=== PATIENT | female | born 1950 | race Caucasian/White ===

== ENCOUNTER → 2017-07-18 | Outpatient (CLI) | payer MEDICARE, OTHER ==
--- NOTE | 2017-07-18 10:45 | WOMENS IMAGING REPORT ---
EXAM DESCRIPTION: 3D SCREENING MAMMO BILAT COMPLETED DATE/TIME: 07/18/2017 8:17 am REASON FOR STUDY: SCREENING MAMMO Z12.31 ENCNTR SCREEN MAMMOGRAM FOR MALIGNANT NEOPLASM OF CHRIS COMPARISON: None available. TECHNIQUE: Standard craniocaudal and mediolateral oblique views of each breast recorded using digita l acquisition and breast tomosynthesis. LIMITATIONS: None. FINDINGS: RIGHT BREAST MASSES: No suspicious masses. CALCIFICATIONS: No new or suspicious calcifications. ARCHITECTURAL DISTORTION: None. DEVELOPING DENSITY: None. ASYMMETRY: None noted. OTHER: No other significant findings. LEFT BREAST MASSES: No suspicious masses. CALCIFICATIONS: No new or suspicious calcifications. ARCHITECTURAL DISTORTION: Focal architectural distortion lower inner quadrant left breast about 8 cm deep to the nipple. DEVELOPING DENSITY: None. ASYMMETRY: None noted. OTHER: No other significant findings. Read with the assistance of CAD. .[facility] - R2 Cenova Version 1.3 .[facility] - R2 Cenova Version 1.3 .[facility] - R2 Cenova Version 2.4 .[facility] [place] R2 Cenova Version 2.4 .[facility] - R2 Filter Press Tender Head Version 9.2 IMPRESSION: Architectural distortion left breast. BREAST DENSITY: b. There are scattered areas of fibroglandular density. BIRAD: 0 Incomplete: Needs Additional Imaging Evaluation and/or prior Mammograms for Comparison. RECOMMENDATION: RECOMMENDED FOLLOW-UP: True lateral, cone compression views and potential ultrasound of the left breast. The patient will be contacted for additional imaging. COMMENT: The patient has been notified of the results by letter per SA requirements. Additional no tification policies are in place for contacting patient with suspicious or incomplete findings. Quality ID #[id number]: The [employer] recommends an annual screening mammogram for women aged 40 years or over. This facility utilizes a reminder system to ensure that all patients receive reminder letters, and/or direct phone calls for appointments. This includes reminders for routine scr eening mammograms, diagnostic mammograms, or other Breast Imaging Interventions when appropriate. Th is patient will be placed in the appropriate reminder system. The [employer] (ACR) has developed recommendations for screening MRI of the breast s in certain patient populations, to be used in conjunction with mammography. Breast MRI surveillanc e may be appropriate for women with more than 20% lifetime risk of developing breast cancer as deter mined by genetic testing, significant family history of the disease, or history of mantle radiation f or Hodgkins Disease. ACR Practice Guidelines 2008. DBT Technology DBT is a type of tomographic mammography. With conventional mammography, overlapping breast tissue ma y make lesions difficult to detect, even with good compression. DBT uses an x-ray tube that rotates a round the breast, taking images at different angles. These images are then combined to create thin sl ices of the breast that the radiologist can view as a 3D reconstruction. The [employer] unit can perform full-field digital mammograms (2D imaging); or DBT (3D imaging); or both, in a combination mode that quickly performs both the mammogram and the tomosynthesis scan while the breast is still compressed. PQRS 6045F: Fluoroscopic imaging is not utilized for breast tomosynthesis. TECHNICAL DOCUMENTATION: FINDING NUMBER: (1) ASSESSMENT: (1) JOB ID: [id number] [employer]- All Rights Reserved Reading location - IP/workstation name: [email or web address]
== END ==
LOC: WI 08:03
PROVIDERS: ATTEND Nurse Practitioner Primary Care
DX: Z12.31 Encounter for screening mammogram for malignant neoplasm of breast (principal); N64.89 Other specified disorders of breast
CPT/HCPCS: 77063; 77067

== ENCOUNTER → 2017-07-30 | Outpatient (CLI) | payer MEDICARE, OTHER ==
--- NOTE | 2017-07-30 10:03 | WOMENS IMAGING REPORT ---
EXAM DESCRIPTION: LEFT DIAGNOSTIC MAMMO W/CAD; U/S BREAST UNILAT LIMITED COMPLETED DATE/TIME: 07/30/2017 8:05 am; 07/30/2017 8:41 am REASON FOR STUDY: NODULAR DENSITY; LT BREAST N63.24 N63.24 UNSPECIFIED LUMP IN THE LEFT BREAST, LOW ER INNER QUAD COMPARISON: 07/18/2017 TECHNIQUE: True lateral and cone compression views. LIMITATIONS: None. FINDINGS: BREAST: left MASSES: Small mass with architectural distortion upper inner quadrant persists with cone compression. CALCIFICATIONS: No new or suspicious calcifications. ARCHITECTURAL DISTORTION: See above. DEVELOPING DENSITY: None. ASYMMETRY: None noted. OTHER: No other significant findings. Ultrasound of the left breast demonstrates, in the upper outer quadrant, 7 x 5 x 7 mm hypoechoic lesi on with posterior shadowing and internal flow on color Doppler. IMPRESSION: Suspicious mass. BREAST DENSITY: b. There are scattered areas of fibroglandular density. BIRAD: 4 Suspicious. Biopsy should be considered. RECOMMENDATION: RECOMMENDED FOLLOW UP: Birads 4: Biopsy should be performed in the absence of clinic al contraindication. SPECIFIC INTERVENTION/IMAGING/CONSULTATION RECOMMENDED:The suspicious finding(s) amenable to US guide d core/vacuum assisted biopsy. COMMUNICATION:The imaging findings were not discussed with the patient. Her referring provider has be en notified of the findings. COMMENT: The patient has been notified of the results by letter per SA requirements. Additional no tification policies are in place for contacting patient with suspicious or incomplete findings. Quality ID #[id number]: The [employer] recommends an annual screening mammogram for women aged 40 years or over. This facility utilizes a reminder system to ensure that all patients receive reminder letters, and/or direct phone calls for appointments. This includes reminders for routine scr eening mammograms, diagnostic mammograms, or other Breast Imaging Interventions when appropriate. Th is patient will be placed in the appropriate reminder system. The [employer] (ACR) has developed recommendations for screening MRI of the breast s in certain patient populations, to be used in conjunction with mammography. Breast MRI surveillanc e may be appropriate for women with more than 20% lifetime risk of developing breast cancer as deter mined by genetic testing, significant family history of the disease, or history of mantle radiation f or Hodgkins Disease. ACR Practice Guidelines 2008. TECHNICAL DOCUMENTATION: FINDING NUMBER: (1) ASSESSMENT: (1) JOB ID: [id number] [employer]- All Rights Reserved Reading location - IP/workstation name: [email or web address]
== END ==
LOC: WI 07:35
PROVIDERS: ATTEND Nurse Practitioner Primary Care
DX: N63.24 Unspecified lump in the left breast, lower inner quadrant (principal)
CPT/HCPCS: 76642

== ENCOUNTER → 2017-09-02 | Outpatient (CLI) | payer MEDICARE, OTHER ==
--- NOTE | 2017-09-03 08:19 | WOMENS IMAGING REPORT ---
EXAM DESCRIPTION: 3D DX MAMMO LEFT UNILAT COMPLETED DATE/TIME: 09/02/2017 10:33 am REASON FOR STUDY: ABNORMAL AND INCONCLUSIVE FINDINGS; R92.8 R92.8 OTH ABN AND INCONCLUSIVE FINDINGS ON DX IMAGING OF CHRIS COMPARISON: 07/18/2017, 07/30/2017 mammograms Left breast ultrasound 07/30/2017 TECHNIQUE: Standard craniocaudal and mediolateral oblique images of the breast recorded using digita l acquisition and breast tomosynthesis. LIMITATIONS: None. FINDINGS: BREAST: Left MASSES: The suspicious 7 x 5 mm nodule in the left breast medially 9 to 10 o'clock position upper inn er quadrant was biopsied by Dr. Gonzalez. There is now a biopsy clip in the mass. CALCIFICATIONS: No new or suspicious calcifications. ARCHITECTURAL DISTORTION: There is architectural distortion associated with the 7 x 5 mm previously b iopsied nodule in the medial left breast DEVELOPING DENSITY: None. ASYMMETRY: None noted. OTHER: No other significant findings. Read with the assistance of CAD. .[facility] - R2 Cenova Version 1.3 .[facility] - R2 Cenova Version 1.3 .[facility] - R2 Cenova Version 2.4 .[facility] [place]2 Cenova Version 2.4 .[facility] - R2 Vendor Management Associate Version 9.2 IMPRESSION: Biopsy Clip marker is now present in the left breast suspicious nodules 7 x 5 mm in size , medially at the 9 to 10 o'clock position. BREAST DENSITY: b. There are scattered areas of fibroglandular density. BIRAD: 6 Known biopsy-proven malignancy. Appropriate action should be taken. RECOMMENDATION: RECOMMENDED FOLLOW UP: As per Dr. Gonzalez SPECIFIC INTERVENTION/IMAGING/CONSULTATION RECOMMENDED:No additional intervention/ imaging/consultati on needed at this time. COMMUNICATION:Patient notified by letter COMMENT: The patient has been notified of the results by letter per SA requirements. Additional no tification policies are in place for contacting patient with suspicious or incomplete findings. Quality ID #[id number]: The [employer] recommends an annual screening mammogram for women aged 40 years or over. This facility utilizes a reminder system to ensure that all patients receive reminder letters, and/or direct phone calls for appointments. This includes reminders for routine scr eening mammograms, diagnostic mammograms, or other Breast Imaging Interventions when appropriate. Th is patient will be placed in the appropriate reminder system. The [employer] (ACR) has developed recommendations for screening MRI of the breast s in certain patient populations, to be used in conjunction with mammography. Breast MRI surveillanc e may be appropriate for women with more than 20% lifetime risk of developing breast cancer as deter mined by genetic testing, significant family history of the disease, or history of mantle radiation f or Hodgkins Disease. ACR Practice Guidelines 2008. DBT Technology DBT is a type of tomographic mammography. With conventional mammography, overlapping breast tissue ma y make lesions difficult to detect, even with good compression. DBT uses an x-ray tube that rotates a round the breast, taking images at different angles. These images are then combined to create thin sl ices of the breast that the radiologist can view as a 3D reconstruction. The [place] unit can perform full-field digital mammograms (2D imaging); or DBT (3D imaging); or both, in a combination mode that quickly performs both the mammogram and the tomosynthesis scan while the breast is still compressed. PQRS 6045F: Fluoroscopic imaging is not utilized for breast tomosynthesis. TECHNICAL DOCUMENTATION: FINDING NUMBER: (1) ASSESSMENT: (1) JOB ID: [id number] [employer]- All Rights Reserved Reading location - IP/workstation name: [email or web address]
== END ==
LOC: WI 10:13
PROVIDERS: ATTEND Surgery
DX: N63.22 Unspecified lump in the left breast, upper inner quadrant (principal)
CPT/HCPCS: 77065; G0279

== ENCOUNTER 2017-09-27 06:51 | Inpatient (IN) | payer MEDICARE, OTHER ==
[2017-09-27] MEDS ORDERED: HEPARIN SOD (PORCINE) 1,000 UNIT/ML 10 ML VIAL IV ONE ×2 (07:32→08:05)
[2017-09-27] MEDS ORDERED: DILTIAZEM HCL/D5W 125 MG/125 ML RTUINJ IV PRN (07:36)
[2017-09-27] MEDS ORDERED: HEPARIN SODIUM,PORCINE/D5W 25,000 UNIT/250 ML RTUINJ IV PRN (07:38)
[2017-09-27] MEDS ORDERED: DILTIAZEM HCL INJ 25 MG/5 ML VIAL IV ONE (07:40)
--- NOTE | 2017-09-27 07:43 | ER Document Report ---
ED General - General Chief Complaint: Palpitations Stated Complaint: PALPITATIONS Time Seen by Provider: 09/27/17 07:00 Mode of Arrival: Ambulatory Information source: Patient, Relative TRAVEL OUTSIDE OF THE [place] IN LAST 30 DAYS: No - HPI Notes: 67 yr old female present to the ED with new onset A. fib with slight shortness of breath, states symptoms started approximately 2 hours ago where she feels like her "heart is skipping a beat". She does not take any anticoagulants. Denies history of hypertension. States she has had episodes where she felt like her heart was skipping a beat but it only lasted for 20 seconds and went away. Reports she is fully immunized. Denies any trauma to her chest. Patient did have a left-sided lumpectomy performed 2 weeks ago for stage I breast cancer without metastasis. She is still waiting to undergo radiation therapy patient does have a history of a nephrectomy. states this is a long as she is ever felt her heart racing. Does not take any everyday medications. States she drinks coffee moderately and eats chocolate. Denies fevers, chills, chest pain, dyspnea, nausea, vomiting, diarrhea, abdominal pain, hematuria, blurred vision, double vision, loss of vision, speech changes, LH, dizziness, syncope, headaches, wheezing, ST, URI, neck pain, weakness, bowel or bladder dysfunction, saddle anesthesia, numbness or tingling in bilateral upper or lower extremities equally, muscle paralysis, weakness in bilateral upper or lower extremities equally or rash. Denies IV drug use. - Related Data Allergies/Adverse Reactions: Sulfa (Sulfonamide Antibiotics) Allergy (Verified 09/27/17 07:44) Past Medical History - General Information source: Patient, Relative - Social History Smoking Status: Unknown if Ever Smoked Family History: Reviewed & Not Pertinent Review of Systems - Review of Systems Constitutional: See HPI EENT: No symptoms reported Cardiovascular: Palpitations Respiratory: Short of breath Gastrointestinal: No symptoms reported Genitourinary: No symptoms reported Female Genitourinary: No symptoms reported Musculoskeletal: No symptoms reported Skin: No symptoms reported Hematologic/Lymphatic: No symptoms reported Neurological/Psychological: No symptoms reported Physical Exam - Vital signs Vitals: Temp Pulse Resp BP Pulse Ox 97.5 F 131 H 18 126/100 H 94 09/27/17 07:03 09/27/17 07:03 09/27/17 07:03 09/27/17 07:03 09/27/17 07:03 - Notes Notes: PHYSICAL EXAMINATION: GENERAL: Well-appearing, well-nourished and in no acute distress. HEAD: Atraumatic, normocephalic. EYES: Pupils equal round and reactive to light, extraocular movements intact, conjunctiva are normal. ENT: Nares patent, oropharynx clear without exudates. Moist mucous membranes. NECK: Normal range of motion, supple without lymphadenopathy LUNGS: Breath sounds clear to auscultation bilaterally and equal. No wheezes rales or rhonchi. HEART: Tachycardia, irregular, A. fib. No murmurs noted ABDOMEN: Soft, nontender, nondistended abdomen. No guarding, no rebound. No masses appreciated. Female : deferred Musculoskeletal: Normal range of motion, no pitting or edema. No cyanosis. NEUROLOGICAL: Cranial nerves grossly intact. Normal speech, normal gait. Normal sensory, motor exams PSYCH: Normal mood, normal affect. SKIN: Warm, Dry, normal turgor, no rashes or lesions noted. PHYSICAL EXAMINATION: Course - Re-evaluation Re-evalutation: 09/27/17 08:58 67-year-old female is afebrile, in active rapid A. fib no distress presents for evaluation of palpitations and shortness of breath. Patient is in rapid A. fib , and is not on any anticoagulants. Start her on diltiazem and heparin drips per protocol. Initial CBC negative for anemia or leukocytosis, CMP negative for renal or hepatic dysfunction, no electrolyte disturbances. Coags, cardiac enzymes and chest x-ray unremarkable. Will admit to the [facility] under Dr. Dali Caballero, hospitalist, medical service for new onset A. fib. Patient remains afebrile, vitals stable, heart rate at 0900 HR 99, NSR. Patient remains in no distress, is pleasant and afebrile. CT unremarkable for PE or dissecting aortic aneurysm, noted postoperative seroma from patient's meniscectomy. 1000-Patient remains afebrile, no distress, heart rate has reduced to 95 bpm. Patient is not having any active chest pain. - Vital Signs Vital signs: Temp Pulse Resp BP Pulse Ox 97.5 F 131 H 15 157/96 H 97 09/27/17 07:03 09/27/17 07:03 09/27/17 09:30 09/27/17 09:00 09/27/17 09:36 - Laboratory Result Diagrams: 09/27/17 07:32 09/27/17 07:32 Laboratory results interpreted by me: 09/27/17 09/27/17 07:32 08:29 Sodium 149.1 H Chloride 110 H Urine Blood MODERATE H - EKG Interpretation by Me Rhythm: A.Fib - rapid. HR 135 bmp. Discharge - Discharge Clinical Impression: Rapid atrial fibrillation, Shortness of breath Condition: Stable Disposition: ADMITTED INPATIENT Admitting Provider: Hospitalist - Dr. Dali Caballero Unit Admitted: [facility]
--- NOTE | 2017-09-27 07:50 | RADIOLOGY REPORT (SQ) ---
EXAM DESCRIPTION: XR CHEST 1 VIEW COMPLETED DATE/TME: 09/27/2017 07:28 CLINICAL HISTORY: 67 years Female, rapid a fib COMPARISON: None. NUMBER OF VIEWS/TECHNIQUE: 1/AP FINDINGS: Adequate lung volume, clear parenchyma, normal cardiac silhouette, and left axillary and lower midthoracic clips. IMPRESSION: No acute cardiopulmonary findings.
[2017-09-27] MEDS ORDERED: DILTIAZEM HCL/D5W 125 MG/125 ML RTUINJ IV ONE (07:52)
[2017-09-27 07:59] LABS: INTERNATIONAL RATION (INR) 0.89; PROTHROMBIN TIME 12.5 SEC (11.4-15.4)
[2017-09-27 08:00] LABS: ABSOLUTE BASOPHILS # (AUTO) 0.1 10^3/uL (0.0-0.2); ABSOLUTE EOSINOPHILS # (AUTO) 0.1 10^3/uL (0.0-0.6); ABSOLUTE LYMPHOCYTES (AUTO) 1.8 10^3/uL (0.5-4.7); ABSOLUTE MONOCYTES (AUTO) 0.4 10^3/uL (0.1-1.4); ABSOLUTE NEUT (AUTO) 4.2 10^3/uL (1.7-8.2); BASOPHILS % (AUTO) 0.8 % (0-2); EOSINOPHILS % (AUTO) 2.2 % (0-6); HEMATOCRIT 44.4 % (36.0-47.0); HEMOGLOBIN 15.1 g/dL (12.0-15.5); LYMPHOCYTES % (AUTO) 27.4 % (13-45); MEAN CORPUSCULAR HEMOGLOBIN 30.3 pg (27.0-33.4); MEAN CORPUSCULAR VOLUME 89 fl (80-97); MONOCYTES % (AUTO) 6.1 % (3-13); PARTIAL THROMBOPLASTIN TIME 32.8 SEC (23.5-35.8); PLATELET COUNT 253 10^3/uL (150-450); RED BLOOD COUNT 4.98 10^6/uL (3.72-5.28); RED CELL DISTRIBUTION WIDTH 13.2 % (11.5-14.0); SEGMENTED NEUTROPHILS % (AUTO) 63.5 % (42-78); TOTAL CELLS COUNTED % (AUTO) 100 %; WHITE BLOOD COUNT 6.7 10^3/uL (4.0-10.5)
[2017-09-27] MEDS ORDERED: HEPARIN SODIUM,PORCINE/D5W 250 ML IV PRN (08:05)
[2017-09-27 08:08] LABS: ALANINE AMINOTRANSFERASE 23 U/L (9-52); ALBUMIN 4.3 g/dL (3.5-5.0); ALKALINE PHOSPHATASE 76 U/L (38-126); ANION GAP 12 (5-19); ASPARTATE AMINO TRANSFERASE 19 U/L (14-36); BILIRUBIN,DIRECT 0.3 mg/dL (0.0-0.4); BILIRUBIN,TOTAL 0.4 mg/dL (0.2-1.3); BLOOD UREA NITROGEN 14 mg/dL (7-20); CALCIUM 10.1 mg/dL (8.4-10.2); CARBON DIOXIDE 27 mmol/L (22-30); CHLORIDE 110 mmol/L (98-107); CREATINE KINASE 41 U/L (30-135); GLUCOSE 96 mg/dL (75-110); POTASSIUM 4.1 mmol/L (3.6-5.0); SODIUM 149.1 mmol/L (137-145); TOTAL PROTEIN 6.8 g/dL (6.3-8.2)
[2017-09-27 08:21] LABS: CREATINE KINASE MB 0.43 ng/mL (<4.55); NT PRO BNP 129 pg/mL (5-900)
[2017-09-27 08:28] LABS: TROPONIN I < 0.012 ng/mL
--- NOTE | 2017-09-27 09:23 | RADIOLOGY REPORT (SQ) ---
EXAM DESCRIPTION: CTA CHEST COMPLETED DATE/TIME: 09/27/2017 8:55 am REASON FOR STUDY: rapid a fib, new onset COMPARISON: None. TECHNIQUE: CT scan of the chest performed using helical scanning technique with dynamic intravenous contrast injection. Images reviewed with lung, soft tissue and bone windows. Reconstructed coronal and sagittal MPR images reviewed. Additional 3 dimensional post-processing performed to develop Maximal Intensity Projection images (CA P). All images stored on PACS. All CT scanners at this facility use dose modulation, iterative reconstruction, and/or weight based d osing when appropriate to reduce radiation dose to as low as reasonably achievable (ALARA). [facility]: Dose Right [facility]: CareDose [facility]: Dose Right [facility]: Teradose 4D [facility]: Ensa CONTRAST TYPE AND DOSE: contrast/concentration: Isovue 300.00 mg/ml; Total Contrast Delivered: 68.0 ml; Total Saline Delivered: 80.0 ml Contrast bolus optimized for the pulmonary arteries. Contrast bolus diagnostic for the thoracic aort a. . RENAL FUNCTION: Creatinine 0.6 RADIATION DOSE: CT Rad equipment meets quality standard of care and radiation dose reduction techniq ues were employed. CTDIvol: 15.3 - 29.8 mGy. DLP: 618 mGy-cm. . LIMITATIONS: None. FINDINGS: LUNGS AND PLEURA: No masses, infiltrates, or pneumothorax. No pleural effusions or pleura l calcifications. AORTA AND GREAT VESSELS: No aneurysm. Contrast bolus is adequate for the thoracic aorta. No thoraci c aortic dissection. HEART: No pericardial effusion. No significant coronary artery calcifications. PULMONARY ARTERIES: No emboli visualized in the main pulmonary arteries or the segmental branches. HILAR AND MEDIASTINAL STRUCTURES: No identified masses or abnormal nodes. HARDWARE: None in the chest. UPPER ABDOMEN: No significant findings. Limited exam. THYROID AND OTHER SOFT TISSUES: Patient recently had a lumpectomy in the upper inner quadrant left br east. On today's study, a 7 x 4 cm fluid density cystic structures present in the upper inner quadra nt left breast likely a seroma. Surgical clips left axilla. BONES: No acute or significant finding. 3D MIPS: Confirm above findings. OTHER: Small retrocardiac hiatal hernia IMPRESSION: No CT angio evidence of acute pulmonary emboli. No thoracic aortic dissection. Postoperative seroma upper inner quadrant left breast COMMENT: Quality ID # [id number]: Final reports with documentation of one or more dose reduction techniques (e.g., Automated exposure control, adjustment of the mA and/or kV according to patient size, use of iterative reconstruction technique) TECHNICAL DOCUMENTATION: JOB ID: [id number] [employer]- All Rights Reserved Reading location - IP/workstation name: [email or web address]
[2017-09-27] MEDS ORDERED: IPRATROPIUM/ALBUTEROL 0.5-2.5 MG/3 ML AMPUL NEB PRN (09:33)
[2017-09-27] MEDS ORDERED: ONDANSETRON HCL INJ/PF 4 MG/2 ML SDV IV PRN (09:33)
[2017-09-27] MEDS ORDERED: ACETAMINOPHEN 325 MG TABLET PO PRN (09:33)
[2017-09-27 09:45] LABS: APPEARANCE,URINE CLEAR; BILIRUBIN,URINE NEGATIVE (NEGATIVE); COLOR,URINE COLORLESS; GLUCOSE, URINE NEGATIVE (NEGATIVE); KETONES,URINE NEGATIVE (NEGATIVE); LEUKOCYTE ESTERASE,URINE NEGATIVE (NEGATIVE); NITRITE,URINE NEGATIVE (NEGATIVE); PROTEIN,URINE NEGATIVE (NEGATIVE); URINE SPECIFIC GRAVITY 1.004; UROBILINOGEN,URINE NEGATIVE mg/dL (<2.0)
[2017-09-27] MEDS ORDERED: ENOXAPARIN SODIUM INJ 80 MG/0.8 ML DISP.SYRIN SUBCUT SCH ×2 (10:00→19:00)
[2017-09-27] MEDS ORDERED: ENOXAPARIN SODIUM INJ 40 MG/0.4 ML DISP.SYRIN SUBCUT SCH (10:00)
--- NOTE | 2017-09-27 10:13 | PDOC H&P ---
History of Present Illness Admission Date/PCP: 09/27/17 08:35 ASHANTI MONROY NP Patient complains of: Palpitations for few hours History of Present Illness: TERRY WILSON is a 67 year old female Presents to the emergency room with complaints of palpitations associated with chest tightness which started early this morning. Patient has a prior history of palpitations infarct I reviewed some of records from 2002 that shows that she has had previous workup including Holter monitor and has been seen by trim attacher and she was placed on Toprol-XL as well as Cardizem after workup revealed no significant findings. Patient reports that she has not been taking any medications over the last few years and although she still gets palpitations it is usually self-limited and only last a few seconds except for today when he was persisting and so she decided to seek medical help. She was found to be in atrial fibrillation with rapid ventricular response and her back to the emergency room and she has been started on Cardizem drip. There is no history of thyroid disease. And has a past history of nephrectomy which was about 3 years old. Lumpectomy done in fact about 2 weeks ago for an unspecified breast malignancy. She is scheduled to follow-up with her oncologist this coming week for discussions about radiation treatment as well as hormone therapy. Patient is currently on really no medications except for multiple vitamins and denies any history of smoking or alcohol abuse. Past Medical History Cardiac Medical History: Reports: Other - Paroxysmal atrial tachycardia Pulmonary Medical History: Reports: None Malignancy Medical History: Reports: Breast Cancer - Details unknown Past Surgical History Past Surgical History: Reports: Cholecystectomy, Hysterectomy, Other - Left lumpectomy as well as nephrectomy Social History Information Source: Patient Lives with: Family Smoking Status: Never Smoker - Advance Directive Resuscitation Status: Full Code Family History Family History: Reviewed & Not Pertinent Parental Family History Reviewed: Yes Children Family History Reviewed: Yes Sibling(s) Family History Reviewed.: Yes Medication/Allergy Allergies/Adverse Reactions: Sulfa (Sulfonamide Antibiotics) Allergy (Verified 09/27/17 07:44) Review of Systems All systems: reviewed and no additional remarkable complaints except as stated Physical Exam Vital Signs: Temp Pulse Resp BP Pulse Ox 97.5 F 131 H 16 157/96 H 97 09/27/17 07:03 09/27/17 07:03 09/27/17 09:01 09/27/17 09:00 09/27/17 09:36 General appearance: PRESENT: no acute distress, well-developed, well-nourished Head exam: PRESENT: atraumatic, normocephalic Eye exam: PRESENT: conjunctiva pink, EOMI, PERRLA. ABSENT: scleral icterus Ear exam: PRESENT: normal external ear exam Mouth exam: PRESENT: moist, tongue midline Neck exam: ABSENT: carotid bruit, JVD, lymphadenopathy, thyromegaly Respiratory exam: PRESENT: clear to auscultation akila. ABSENT: rales, rhonchi, wheezes Cardiovascular exam: PRESENT: irregular rhythm, +S1, +S2, tachycardia. ABSENT: diastolic murmur, rubs, systolic murmur Pulses: PRESENT: normal dorsalis pedis pul Vascular exam: PRESENT: normal capillary refill GI/Abdominal exam: PRESENT: normal bowel sounds, soft. ABSENT: distended, guarding, mass, organolmegaly, rebound, tenderness Rectal exam: PRESENT: deferred Extremities exam: PRESENT: full ROM. ABSENT: calf tenderness, clubbing, pedal edema Neurological exam: PRESENT: alert, awake, oriented to person, oriented to place , oriented to time, oriented to situation, CN II-XII grossly intact. ABSENT: motor sensory deficit Psychiatric exam: PRESENT: appropriate affect, normal mood. ABSENT: homicidal ideation, suicidal ideation Skin exam: PRESENT: dry, intact, warm. ABSENT: cyanosis, rash Results Laboratory Results: 09/27/17 07:32 09/27/17 07:32 MCV 89 fl (80-97) 09/27/17 07:32 MCH 30.3 pg (27.0-33.4) 09/27/17 07:32 MCHC 34.0 g/dL (32.0-36.0) 09/27/17 07:32 RDW 13.2 % (11.5-14.0) 09/27/17 07:32 Seg Neutrophils % 63.5 % (42-78) 09/27/17 07:32 Lymphocytes % 27.4 % (13-45) 09/27/17 07:32 Monocytes % 6.1 % (3-13) 09/27/17 07:32 Eosinophils % 2.2 % (0-6) 09/27/17 07:32 Basophils % 0.8 % (0-2) 09/27/17 07:32 Absolute Neutrophils 4.2 10^3/uL (1.7-8.2) 09/27/17 07:32 Absolute Lymphocytes 1.8 10^3/uL (0.5-4.7) 09/27/17 07:32 Absolute Monocytes 0.4 10^3/uL (0.1-1.4) 09/27/17 07:32 Absolute Eosinophils 0.1 10^3/uL (0.0-0.6) 09/27/17 07:32 Absolute Basophils 0.1 10^3/uL (0.0-0.2) 09/27/17 07:32 Chloride 110 mmol/L (98-107) H 09/27/17 07:32 Carbon Dioxide 27 mmol/L (22-30) 09/27/17 07:32 Anion Gap 12 (5-19) 09/27/17 07:32 Est GFR ( Amer) > 60 (>60) 09/27/17 07:32 Est GFR (Non-Af Amer) > 60 (>60) 09/27/17 07:32 Glucose 96 mg/dL (75-110) 09/27/17 07:32 Calcium 10.1 mg/dL (8.4-10.2) 09/27/17 07:32 Total Bilirubin 0.4 mg/dL (0.2-1.3) 09/27/17 07:32 AST 19 U/L (14-36) 09/27/17 07:32 ALT 23 U/L (9-52) 09/27/17 07:32 Alkaline Phosphatase 76 U/L (38-126) 09/27/17 07:32 Total Protein 6.8 g/dL (6.3-8.2) 09/27/17 07:32 Albumin 4.3 g/dL (3.5-5.0) 09/27/17 07:32 Urine Color COLORLESS 09/27/17 08:29 Urine Appearance CLEAR 09/27/17 08:29 Urine pH 7.0 (5.0-9.0) 09/27/17 08:29 Ur Specific [place] 1.004 09/27/17 08:29 Urine Protein NEGATIVE mg/dL (NEGATIVE) 09/27/17 08:29 Urine Glucose (UA) NEGATIVE mg/dL (NEGATIVE) 09/27/17 08:29 Urine Ketones NEGATIVE mg/dL (NEGATIVE) 09/27/17 08:29 Urine Blood MODERATE (NEGATIVE) H 09/27/17 08:29 Urine Nitrite NEGATIVE (NEGATIVE) 09/27/17 08:29 Ur Leukocyte Esterase NEGATIVE (NEGATIVE) 09/27/17 08:29 Urine WBC (Auto) 1 /HPF 09/27/17 08:29 Urine RBC (Auto) 10 /HPF 09/27/17 08:29 09/27/17 09/27/17 07:32 07:32 Creatine Kinase 41 CK-MB (CK-2) 0.43 Troponin I < 0.012 NT-Pro-B Natriuret Pep 129 Impressions: Chest X-Ray 09/27/17 07:28 IMPRESSION: No acute cardiopulmonary findings. Chest/Abdomen CTA 09/27/17 07:29 IMPRESSION: No CT angio evidence of acute pulmonary emboli. No thoracic aortic dissection. Postoperative seroma upper inner quadrant left breast Assessment & Plan - Diagnosis (1) Rapid atrial fibrillation Is this a current diagnosis for this admission?: Yes Plan: Patient was started on Cardizem IV and this can be switched to p.o. once she is controlled. I have also started on Lovenox but if no valvular involvement on echo she can be switched to 1 of the new oral anticoagulants. Her cha2ds Vasc score is 2 so she will benefit from anticoagulation Cardiology consult has been requested (2) History of lumpectomy of left breast Is this a current diagnosis for this admission?: Yes Plan: This was just done about 2 weeks ago with details unknown. Patient is scheduled to follow-up with oncology in a few days (3) Shortness of breath Is this a current diagnosis for this admission?: Yes Plan: #2 atrial fibrillation. CTA reveals no evidence of pulmonary embolism as this should definitely be a consideration due to history of breast cancer. - Time Time Spent: 30 to 50 Minutes Medications reviewed and adjusted accordingly: Yes Anticipated discharge: Home Within: within 48 hours - Inpatient Certification Based on my medical assessment, after consideration of the patient's comorbidities, presenting symptoms, or acuity I expect that the services needed warrant INPATIENT care.: Yes Medical Necessity: Need For Continuous Telemetry Monitoring
--- NOTE | 2017-09-27 10:29 | EKG REPORT ---
SEVERITY:- ABNORMAL ECG - ATRIAL FIBRILLATION WITH RAPID V-RATE ST DEPRESSION, PROBABLY RATE RELATED : Confirmed by: Carmelo De León MD 27-Sep-2017 10:28:42
[2017-09-27] MEDS ORDERED: DIGOXIN INJ 0.5 MG/2 ML AMPULE IV ONE (11:30)
[2017-09-27] MEDS: DOCUSATE SODIUM 100 MG CAPSULE PO SCH (12:07)
[2017-09-27 12:26] LABS: FREE T3 3.73 pg/mL (2.77-5.27); FREE T4 (FREE THYROXINE) 1.25 ng/dL (0.78-2.19)
[2017-09-27 12:40] LABS: THYROID STIMULATING HORMONE 2.58 uIU/mL (0.47-4.68)
[2017-09-27] MEDS ORDERED: SOTALOL HCL 80 MG TABLET PO ONE (14:00)
--- NOTE | 2017-09-27 17:06 | XCELERA REPORT ---
[address] [address] Transthoracic Echocardiogram Report Name: TERRY WILSON Age: 67 yrs Gender: Female : 1950 Patient Status: Inpatient Patient Location: [address] [place] [address] Study Date: 09/27/2017 02:22 PM Procedure: A two-dimensional transthoracic echocardiogram with color flow and Doppler was performed. Study Quality: Technically suboptimal. The study was technically difficult with many images being suboptimal in quality. Poor apical views and poor doppler and valve interogation. Reason For Study: ATRIAL FIBRILLATION. History: ATRIAL FIBRILLATION. Ordering Physician: JOSE ALBERTO NICHOLS Performed By: Ann-Marie Gaston Interpretation Summary The left ventricle is grossly normal size. There is normal left ventricular wall thickness. LV EF is > than 60% Left ventricular systolic function is normal. Doppler measurements suggest normal left ventricular diastolic function Probably no reional wall motion abnormality. The left atrial size is normal. There is no evidence of mitral valve prolapse. There is no mitral valve stenosis. There is no aortic valve stenosis There is no LVOT obstruction. No aortic regurgitation is present. There is no tricuspid stenosis. Probably no TR.Uable to callculate RVSP due to lack of TR jet. There is no pericardial effusion. MMode/2D Measurements & Calculations RVDd: 3.3 cm LVIDd: 4.4 cm FS: 38.0 % Ao root diam: 2.5 cm IVSd: 0.69 cm LVIDs: 2.7 cm EDV(Teich): 88.4 ml Ao root area: 4.8 cm2 LVPWd: 0.89 cmESV(Teich): 27.9 ml EF(Teich): 68.4 % LVOT diam: 1.4 cm LVOT area: 1.6 cm2 Doppler Measurements & Calculations MV E max yulia: MV dec slope: Ao V2 max: LV V1 max P.4 cm/sec 109.4 cm/sec 2.5 mmHg MV A max yulia: 316.7 cm/sec2 Ao max PG: LV V1 max: 57.2 cm/sec MV dec time: 4.8 mmHg 79.3 cm/sec MV E/A: 1.1 0.20 sec MESERET(V,D): 1.1 cm2 PA V2 max: 76.8 cm/sec PA max P.4 mmHg Left Ventricle The left ventricle is grossly normal size. There is normal left ventricular wall thickness. LV EF is > than 60%. Left ventricular systolic function is normal. Doppler measurements suggest normal left ventricular diastolic function. Probably no reional wall motion abnormality. Right Ventricle The right ventricle is not well visualized secondary to technical limitations. Atria Right atrium not well visualized secondary to technical limitations. The left atrial size is normal. Mitral Valve There is no evidence of mitral valve prolapse. There is no vegetation seen on the mitral valve. There is no mitral valve stenosis. There is no mitral regurgitation noted. Aortic Valve There is no aortic valvular vegetation. There is no aortic valve stenosis. There is no LVOT obstruction. No aortic regurgitation is present. Tricuspid Valve There is no tricuspid stenosis. Probably no TR.Uable to callculate RVSP due to lack of TR jet. Pulmonic Valve There is no pulmonic valvular stenosis. There is no pulmonic valvular regurgitation. Great Vessels The aortic root is normal size. Effusions There is no pericardial effusion. : JOSE ALBERTO NICHOLS > Leydi Blanco
--- NOTE | 2017-09-27 21:00 | EKG REPORT ---
SEVERITY:- NORMAL ECG - SINUS RHYTHM : Confirmed by: Carmelo De León MD 27-Sep-2017 21:00:04
[2017-09-27] MEDS: SOTALOL HCL 80 MG TABLET PO SCH (21:28)
--- NOTE | 2017-09-28 05:56 | CONSULTATION REPORT E ---
Consultation Report NAME: TERRY WILSON : 1950 AGE: 67Y DATE: 09/27/2017 322 A TO: MAVERICK DURAN M.D. FROM: TERRI NICHOLS M.D. Requesting Physician REASON FOR CONSULTATION: Atrial fibrillation with rapid ventricular response. Note, the patient was seen at around 3 p.m. Fifty-five minutes were spent on the patient with more than 50% of the time spent on direct patient care. HISTORY: The patient is a 67-year-old female with no known major medical illness, except a long-standing history of recurrent short episodes of palpitations. She states that she woke up this morning with significant palpitations, which lasted longer than usual. She also had some chest tightness, but no shortness of breath, nausea, dizziness, syncope or presyncope. There was no PND or orthopnea. There was no diaphoresis. The patient came to the emergency room and was found to be in atrial fibrillation with rapid ventricular response and the patient was placed on Cardizem drip at 10 mg/hr. Before seeing the patient, due to the consult being placed for me, I had reviewed her chart and gave her a dose of Digoxin. The patient subsequently converted to sinus rhythm when I saw her. At present, she denies any chest pain or discomfort. There is no chest tightness. There is no PND, orthopnea, shortness of breath, or palpitations. There are no TIA or CVA symptoms. PAST MEDICAL HISTORY: 1. Negative for hypertension or coronary artery disease. 2. She states that in 2002, she had palpitations and was diagnosed with paroxysmal atrial tachycardia and was placed on Toprol XL. At that time cardiac workup otherwise was negative. 3. She denies diabetes mellitus or thyroid disease. 4. The patient does eat a lot of chocolate and also drinks a lot of coffee, which is caffeinated. 5. She had a lumpectomy done in her left breast about 2 weeks ago and she states the cancer was removed fully and there was no lymph node involvement. She is supposed to get radiation soon for this. PAST SURGICAL HISTORY: 1. Cholecystectomy. 2. Hysterectomy. 3. Left lumpectomy. 4. 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 FAMILY HISTORY: Negative for hypertension or coronary artery disease. SOCIAL HISTORY: The patient has never smoked. There is no history of ETOH abuse. The patient drinks a lot of coffee and also eats chocolate. ADVANCED DIRECTIVES: The patient is FULL CODE. Her daughter is her surrogate healthcare decision-maker. ALLERGIES: SULFA. MEDICATIONS: 1. Tylenol 650 mg p.o. q.4 hours p.r.n. 2. Aspirin 81 mg p.o. daily. 3. She did receive Digoxin 0.25 mg IV x1. 4. She was on a Cardizem drip at 5 mg/hr, which was discontinued. 5. Colace 100 mg p.o. daily. 6. Lovenox 75 mg subcutaneously q.12 hours. 7. She did get heparin 5000 units IV x1 and 4000 units IV x1. 8. DuoNeb 3 mL nebulizer treatment q.6 hours p.r.n. REVIEW OF SYSTEMS: CONSTITUTIONAL: Denies any fever, chills or rigors. No fatigue or generalized weakness. HEAD: Denies headaches or head injury. EYES: No history of amblyopia or diplopia. No history of amaurosis fugax. EARS: No history of hearing loss. No history of tinnitus. No history of recurrent ear infections. NOSE: No history of nasal polyps. No history of nosebleeds. No history of hay fever. MOUTH: No history of altered taste sensation. No ulcers in the mouth. No bleeding from the gums. THROAT: There is no odynophagia or dysphagia. There are no recurrent sore throats. SKIN: There is no pruritus. There is no yellowish discoloration of the skin. There is no history of skin cancer. There is no history of psoriasis. No history of eczema. NECK: No painful or painless swelling in the neck. No lymphadenopathy and no goiter. LUNGS: No history of asthma or COPD. No history of sleep apnea. No history of pulmonary embolism. No history of symptoms suggestive of upper respiratory tract infection or lower respiratory tract infection. No history of sleep apnea. No history of wheezing. No history of cough or sputum production. No hemoptysis and no pleuritic chest pain. No history of pulmonary embolism. CARDIAC: She denies history of hypertension, coronary artery disease, [place] or anginal symptoms. No history of congestive heart failure. History of palpitations in the past. She has been diagnosed with paroxysmal atrial tachycardia, which has not recurred, but recently she states she has been having episodes of palpitations, which have been increasing in frequency and also duration, until she came to the hospital now. The patient was found in atrial fibrillation with rapid ventricular response and has now converted to sinus rhythm. There is no leg edema. There is no syncope. There is no PND or orthopnea. The patient did have palpitations and she had atrial fibrillation. GASTROINTESTINAL: No history of GERD. No history of peptic ulcer disease. No history of fatty food intolerance. No history of GI bleed. No history of hepatitis. No history of cirrhosis of the liver. No history of hematemesis or melena. No altered bowel movements. ENDOCRINE: No history of diabetes mellitus. No history of thyroid disease. No history of polydipsia or polyuria. No history of heat or cold intolerance. No history of hirsutism, no history of excessive sweating. RENAL: No history of chronic kidney disease, although she has a solitary kidney. She has had right nephrectomy when she was 3 years old. No symptoms of UTI. No history of hematuria, pyuria or dysuria. MUSCULOSKELETAL: No history of arthritis or collagen vascular disease. CENTRAL NERVOUS SYSTEM: No history of TIA or CVA. No history of headaches or seizures. There is no history of migraines. No gait imbalance. PSYCHIATRIC: No history of anxiety or depression. No history of suicidal ideation. No history of homicidal ideation. VASCULAR: No history of calf or buttock claudication. No history of DVT. HEMATOLOGICAL: No history of bleeding diathesis or clotting disorders. PHYSICAL EXAMINATION: GENERAL: On examination at present, the patient is well built and well nourished, and well groomed, in no acute distress. VITAL SIGNS: She is afebrile with a temperature of 98.2 degrees Fahrenheit, pulse 72 beats/min regular sinus rhythm, blood pressure 138/51, respirations 12/min, O2 sat 99% on room air. HEENT: Head is atraumatic, normocephalic. Eyes: Pupils are equal, round and regular, reactive to light and accommodation. Extraocular movements are normal. There is no conjunctival pallor. There is no scleral icterus. Ears: Tympanic membranes are intact, external auditory canals are clear. Nose: There is no deviated nasal septum. There is no inflammation of the nasal mucous membrane. Mouth: Mucous membranes of the mouth are moist. Tongue is moist. There are no ulcers. There is no bleeding from the gums. Throat: There is no redness of the oropharynx. There are no exudates. SKIN: There is no skin rashes. There are no skin lesions. There is no petechiae or ecchymosis. NECK: Supple. There is no JVD. There is no lymphadenopathy. There is no goiter. Carotids are equal. There is no bruit. CHEST: There is no chest wall tenderness. The site of lumpectomy is healing well, almost healed. LUNGS: Clear to auscultation and percussion without any rhonchi, rales or wheezing. HEART: S1, S2 heard. S1 is of normal intensity. There is no S3 gallop. There is no S4 gallop. There is a systolic murmur at the left sternal border at the apex without radiation. There is no rub. ABDOMEN: Soft, nontender. There is no hepatosplenomegaly. Bowel sounds are well heard. There are no tender areas or masses. There is no rebound, guarding or rigidity. EXTREMITIES: Femorals are deep. Leg pulses are diminished. There are no femoral bruits. There is no pedal edema. There is no cyanosis or clubbing. There is no DVT or cellulitis. Capillary refill is normal. There is no calf tenderness. CENTRAL NERVOUS SYSTEM: The patient is conscious, awake, alert and oriented x3 with no focal deficits. PSYCHIATRIC: The patient's judgment and insight are intact. Her affect is normal. DIAGNOSTICS: The patient's echo is a technically difficult study, but no valvular stenotic or regurgitant lesions seen. Probably no wall motion abnormality. Normal left ventricular ejection fraction. Normal LV diastolic function. The patient's EKG initially showed atrial fibrillation with ventricular response of 153 beats/min, diffuse ST segment depressions, rate related. The patient's subsequent EKG showed sinus rhythm within normal limits. The patient's chest and abdomen CTA is negative for any acute pathology and there is no pulmonary embolism. There is no thoracic aortic dissection. Postoperative seroma in the upper inner quadrant of the left breast. The patient's white count is 6900, hemoglobin 15.1, hematocrit 44.4, platelet count 253,000. Sodium 149.1, potassium 4.1, chloride 110, CO2 27, BUN 14, creatinine 0.61, GFR greater than 60, glucose 96, calcium 10.1. Liver function tests were normal. Magnesium 1.9. Troponin-I negative x3. CPK-MB negative at 0.43. Free T4 normal at 1.25, TSH normal at 2.58 and free T3 is 3.73. Albumin 4.3, total protein 6.8. Urine shows moderate blood, most likely a catheterized specimen, otherwise, negative. IMPRESSION: 1. Paroxysmal atrial fibrillation. Most likely secondary to the patient's high intake of chocolate and caffeine. The patient has been counseled to stop this. At present we will not place the patient on terminal clerk anticoagulation. We will stop the patient's Cardizem drip and start the patient on sotalol. The pros and negative effects of sotalol have been discussed with the patient and the patient will be monitored at least for 48 hours after starting this sotalol and we will get 3 EKGs to make sure the QTC interval is not prolonged. This has been discussed with the patient and the patient's daughter. 2. I have asked the patient to switch to decaffeinated coffee or tea and also to cut down on the patient's chocolate. 3. Breast cancer, status post left lumpectomy. The patient states with the lumpectomy, the whole cancer has been removed and there is no lymph node involvement and there is no spread. The patient will be receiving radiation. In view of this, we will place the patient on aspirin 325 mg p.o. daily. We will stop the patient's full dose Lovenox and place her on Lovenox subcutaneously 40 mg for DVT prophylaxis. 4. Also, would recommend the patient had a 30-day event monitor to see if there are paroxysms of atrial fibrillation breaking through her sotalol. In that case then would recommend the patient to be on anticoagulation chronically. Also, would late get an IV Lexiscan Cardiolite stress test. This has been discussed with the patient. Note, the patient's medical decision-making is of high complexity. Her medications have been reviewed. Medications are being changed by me and new medications added. Discussed with the hospitalist taking care of the patient. We will follow with you. The echo has been discussed with the patient. The son was when I spoke to the patient about her echocardiogram findings. Thanking you. DICTATING PHYSICIAN: MAVERICK DURAN M.D. [id number] PHY#: [id number] ID: [id number] JOB#: [id number] ACCT: [id number] cc:MAVERICK DURAN M.D. >
[2017-09-28 07:15] LABS: ANION GAP 12 (5-19); BLOOD UREA NITROGEN 17 mg/dL (7-20); CALCIUM 9.7 mg/dL (8.4-10.2); CARBON DIOXIDE 24 mmol/L (22-30); CHLORIDE 110 mmol/L (98-107); GLUCOSE 96 mg/dL (75-110); POTASSIUM 4.1 mmol/L (3.6-5.0); SODIUM 146.2 mmol/L (137-145)
--- NOTE | 2017-09-28 07:47 | EKG REPORT ---
SEVERITY:- NORMAL ECG - SINUS RHYTHM : Confirmed by: Carmelo De León MD 28-Sep-2017 07:47:13
[2017-09-28] MEDS: ENOXAPARIN SODIUM INJ 40 MG/0.4 ML DISP.SYRIN SUBCUT SCH (09:26)
[2017-09-28] MEDS: DOCUSATE SODIUM 100 MG CAPSULE PO SCH (09:27)
[2017-09-28] MEDS: SOTALOL HCL 80 MG TABLET PO SCH ×2 (09:27→21:22)
[2017-09-28] MEDS: ASPIRIN 325 MG TABLET PO SCH (09:31)
[2017-09-28] MEDS ORDERED: ASPIRIN 81 MG TABLET, CHEWABLE PO SCH ×2 (10:00)
--- NOTE | 2017-09-28 14:14 | PDOC PROGRESS REPORT ---
Subjective Progress Note for:: 09/28/17 Subjective:: Patient converted to sinus rhythm since yesterday and has remained sinus. Was started on sotalol. I discussed with Dr. Martinez and suggest no need for anticoagulant. Reason For Visit: ATRIAL FIBRILLATION WITH RVR Physical Exam Vital Signs: Temp Pulse Resp BP Pulse Ox 97.9 F 71 15 151/79 H 97 09/28/17 11:47 09/28/17 11:47 09/28/17 11:47 09/28/17 11:47 09/28/17 11:47 Intake & Output 09/27/17 09/28/17 09/29/17 06:59 06:59 06:59 Intake Total 2130 1137 Balance 2130 1137 Weight 75.4 kg General appearance: PRESENT: no acute distress, well-developed Head exam: PRESENT: atraumatic, normocephalic Eye exam: PRESENT: conjunctiva pink, EOMI, PERRLA. ABSENT: scleral icterus Ear exam: PRESENT: normal external ear exam Mouth exam: PRESENT: moist, tongue midline Neck exam: ABSENT: carotid bruit, JVD, lymphadenopathy, thyromegaly Respiratory exam: PRESENT: clear to auscultation akila. ABSENT: rales, rhonchi, wheezes Cardiovascular exam: PRESENT: RRR. ABSENT: diastolic murmur, rubs, systolic murmur Pulses: PRESENT: normal dorsalis pedis pul Vascular exam: PRESENT: normal capillary refill GI/Abdominal exam: PRESENT: normal bowel sounds, soft. ABSENT: distended, guarding, mass, organolmegaly, rebound, tenderness Rectal exam: PRESENT: deferred Extremities exam: PRESENT: full ROM. ABSENT: calf tenderness, clubbing, pedal edema Neurological exam: PRESENT: alert, awake, oriented to person, oriented to place , oriented to time, oriented to situation, CN II-XII grossly intact. ABSENT: motor sensory deficit Psychiatric exam: PRESENT: appropriate affect, normal mood. ABSENT: homicidal ideation, suicidal ideation Skin exam: PRESENT: dry, intact, warm. ABSENT: cyanosis, rash Results Laboratory Results: 09/28/17 05:46 09/28/17 09/28/17 04:50 05:46 Sodium 146.2 H Potassium 4.1 Chloride 110 H Carbon Dioxide 24 Anion Gap 12 BUN 17 Creatinine 0.62 Est GFR ( Amer) > 60 Est GFR (Non-Af Amer) > 60 Glucose 96 Calcium 9.7 Stool Occult Blood NEGATIVE 09/27/17 09/27/17 13:00 18:02 Troponin I < 0.012 0.014 Impressions: Chest X-Ray 09/27/17 07:28 IMPRESSION: No acute cardiopulmonary findings. Chest/Abdomen CTA 09/27/17 07:29 IMPRESSION: No CT angio evidence of acute pulmonary emboli. No thoracic aortic dissection. Postoperative seroma upper inner quadrant left breast Assessment & Plan - Diagnosis (1) Rapid atrial fibrillation Is this a current diagnosis for this admission?: Yes Plan: Currently in sinus rhythm. As she was started on sotalol she will need to be monitored in hospital as per the FDA guidelines for about 72 hours (2) History of lumpectomy of left breast Is this a current diagnosis for this admission?: Yes Plan: Follow-up on October 01. Hopefully will discharge her enough to make appointment in the afternoon (3) Shortness of breath Is this a current diagnosis for this admission?: Yes - Time Time Spent with patient: 15-24 minutes Medications reviewed and adjusted accordingly: Yes Anticipated discharge: Acute Rehab Within: within 48 hours - Inpatient Certification Based on my medical assessment, after consideration of the patient's comorbidities, presenting symptoms, or acuity I expect that the services needed warrant INPATIENT care.: Yes Medical Necessity: Risk of Complication if Not Cared For in Hospital
--- NOTE | 2017-09-28 21:16 | PROGRESS NOTE E ---
Progress Note NAME: TERRY WILSON : 1950 AGE: 67Y DATE: 09/28/2017 ROOM: 322 SUBJECTIVE: The patient remains in sinus rhythm on sotalol. There are no *------* effects of sotalol. The patient denies any chest pain or discomfort. Remains in sinus rhythm. There is no PVCs seen. There is no PND, orthopnea. There is no chest pain or discomfort. There is no leg edema. There are no palpitations. There is no dizziness, syncope, or near syncope. There are no TIA or CVA symptoms. The patient is also tolerating aspirin. OBJECTIVE: GENERAL: On examination the patient is well-built and well-nourished, in no acute distress. VITAL SIGNS: She is afebrile with a temperature of 97.7 degrees Fahrenheit, pulse is 61 beats per minute, blood pressure is 152/77, respirations are 15 per minute, O2 saturations are 100% on room air. HEENT: Head is atraumatic, normocephalic. Eyes: Pupils are equal, round and regular, reactive to light and accommodation. Extraocular movements are normal. There is no conjunctival pallor. There is no scleral icterus. ENT is negative. NECK: Supple. There is no JVD. There is no lymphadenopathy. There is no goiter. Carotids are equal. There is no bruit. Trachea is central. LUNGS: Clear to auscultation and percussion. There is no chest wall tenderness. HEART: S1, S2 is heard. There is no S3 gallop. There is no S4 gallop. There is a systolic murmur in the left sternal border and the apex without radiation. There is no rub. ABDOMEN: Soft, nontender. There is no hepatosplenomegaly. Bowel sounds are well heard. EXTREMITIES: Femorals are well felt. There are no femoral bruits. Leg pulses are well felt. There is no pedal edema. There is no cyanosis or clubbing. There is no DVT or cellulitis. Capillary refill is normal. CENTRAL NERVOUS SYSTEM: The patient is conscious, awake, alert and oriented x3 with no focal deficits. DIAGNOSTICS: The patient's EKG shows sinus rhythm, within normal limits. QTC is not prolonged and it is 409 ms. The patient's sodium is 146.2, potassium 4.1, chloride is 110, CO2 is 24. The patient's BUN is 17, creatinine is 0.62, GFR is greater than 60, glucose is 96, calcium is 9.7. IMPRESSION: 1. PAROXYSMAL ATRIAL FIBRILLATION, AT PRESENT IN SINUS RHYTHM. Maintain on sotalol. 2. BREAST CANCER, STATUS POST LEFT LUMPECTOMY FOR RADIATION THERAPY. 3. FLOW MURMUR. RECOMMENDATIONS: Will continue the patient on telemetry *------* effect of sotalol. Will recommend a 30 day event monitor for the patient, later would recommend a stress test. Unfortunately the patient's echocardiogram was suboptimal, although it not show any abnormalities. Note her medications have been reviewed and discussed with the hospitalist taking care of the patient. TIME SPENT: Note 40 minutes spent on this patient with more than 50% of the time spent on direct patient care. Medical decision making is of moderate complexity. We will follow with you. Hopefully the patient will be discharged tomorrow. DICTATING PHYSICIAN: MAVERICK DURAN M.D. [id number] PHY#: [id number] ID: [id number] JOB#: [id number] ACCT: [id number] cc: >
[2017-09-29] MEDS ORDERED: HYDRALAZINE HCL INJ/PF 20 MG/1 ML SDV IV PRN (03:27)
[2017-09-29 04:50] LABS: HEMATOCRIT 42.1 % (36.0-47.0); HEMOGLOBIN 14.2 g/dL (12.0-15.5); MEAN CORPUSCULAR HEMOGLOBIN 30.2 pg (27.0-33.4); MEAN CORPUSCULAR HGB CONC 33.8 g/dL (32.0-36.0); MEAN CORPUSCULAR VOLUME 89 fl (80-97); PLATELET COUNT 244 10^3/uL (150-450); RED BLOOD COUNT 4.71 10^6/uL (3.72-5.28); WHITE BLOOD COUNT 6.8 10^3/uL (4.0-10.5)
[2017-09-29 04:54] LABS: ANION GAP 9 (5-19); BLOOD UREA NITROGEN 15 mg/dL (7-20); CALCIUM 9.6 mg/dL (8.4-10.2); CARBON DIOXIDE 28 mmol/L (22-30); CHLORIDE 109 mmol/L (98-107); CREATINE KINASE 27 U/L (30-135); GLUCOSE 90 mg/dL (75-110); POTASSIUM 4.2 mmol/L (3.6-5.0); SODIUM 146.1 mmol/L (137-145)
[2017-09-29 05:06] LABS: CREATINE KINASE MB 0.24 ng/mL (<4.55)
[2017-09-29 05:36] LABS: TROPONIN I < 0.012 ng/mL
[2017-09-29] MEDS: ENOXAPARIN SODIUM INJ 40 MG/0.4 ML DISP.SYRIN SUBCUT SCH (09:10)
[2017-09-29] MEDS: SOTALOL HCL 80 MG TABLET PO SCH (09:11)
[2017-09-29] MEDS: DOCUSATE SODIUM 100 MG CAPSULE PO SCH (09:11)
[2017-09-29] MEDS: ASPIRIN 325 MG TABLET PO SCH (09:11)
--- NOTE | 2017-09-29 09:12 | EKG REPORT ---
SEVERITY:- NORMAL ECG - SINUS RHYTHM : Confirmed by: Leydi Blanco MD 29-Sep-2017 09:11:45
--- NOTE | 2017-09-29 09:12 | EKG REPORT ---
SEVERITY:- NORMAL ECG - SINUS RHYTHM : Confirmed by: Leydi Blanco MD 29-Sep-2017 09:11:51
[2017-09-29] MEDS ORDERED: AMLODIPINE BESYLATE 5 MG TABLET PO SCH (11:15)
[2017-09-29 11:24] LABS: CREATINE KINASE MB 0.31 ng/mL (<4.55)
[2017-09-29 11:29] LABS: TROPONIN I < 0.012 ng/mL
[2017-09-29] MEDS ORDERED: AMLODIPINE BESYLATE 5 MG TABLET PO ONE (12:30)
--- NOTE | 2017-09-29 15:51 | PDOC DISCHARGE SUMMARY ---
General - Admit/Disc Date/PCP Admission Date/Primary Care Provider: 09/27/17 08:35 ASHANTI MONROY NP Discharge Date: 09/29/17 - Discharge Diagnosis (1) Rapid atrial fibrillation Is this a current diagnosis for this admission?: Yes (2) History of lumpectomy of left breast Is this a current diagnosis for this admission?: Yes (3) Shortness of breath Is this a current diagnosis for this admission?: Yes (4) Hypertension Is this a current diagnosis for this admission?: Yes - Additional Information Resuscitation Status: Full Code Discharge Diet: Cardiac Discharge Activity: Activity As Tolerated Prescriptions: Amlodipine Besylate [Norvasc 5 mg Tablet] 5 mg PO DAILY #30 tablet Sotalol HCl [Betapace 80 mg Tablet] 40 mg PO Q12 #60 tablet Home Medications: Amlodipine Besylate [Norvasc 5 mg Tablet] 5 mg PO DAILY #30 tablet 09/29/17 Aspirin [Aspirin 325 mg Tablet] 325 mg PO DAILY tablet 09/29/17 Sotalol HCl [Betapace 80 mg Tablet] 40 mg PO Q12 #60 tablet 09/29/17 History of Present Illness History of Present Illness: TERRY WILSON is a 67 year old female Presents to the emergency room with complaints of palpitations associated with chest tightness which started early this morning. Patient has a prior history of palpitations infarct I reviewed some of records from 2002 that shows that she has had previous workup including Holter monitor and has been seen by ship mate and she was placed on Toprol-XL as well as Cardizem after workup revealed no significant findings. Patient reports that she has not been taking any medications over the last few years and although she still gets palpitations it is usually self-limited and only last a few seconds except for today when he was persisting and so she decided to seek medical help. She was found to be in atrial fibrillation with rapid ventricular response and her back to the emergency room and she has been started on Cardizem drip. There is no history of thyroid disease. And has a past history of nephrectomy which was about 5 years old. Lumpectomy done in fact about 2 weeks ago for an unspecified breast malignancy. She is scheduled to follow-up with her oncologist this coming week for discussions about radiation treatment as well as hormone therapy. Patient is currently on really no medications except for multiple vitamins and denies any history of smoking or alcohol abuse. Hospital Course Hospital Course: Patient was started on Cardizem drip which controlled her atrial fibrillation. She was monitored on telemetry. She also received digoxin and received a days worth of food strength Lovenox. Spontaneously converted sometime after admission. She was seen by Dr. Blanco who helped to manage cardiac disease. She was started on sotalol and so was monitored in hospital over the last [address] Blanco suggest that she can be discharged today with no QT prolongation or any other significant findings on environmental monitoring technician and EKG. Patient did have poorly controlled blood pressure and so she was started on amlodipine. She will need outpatient adjustment of her antihypertensive. She is scheduled to follow-up with oncologist tomorrow and she has been advised that this can proceed as scheduled. She will also follow-up with her PCP as well as with Dr. Martinez as instructed. Anticoagulant was discontinued and she was placed on full-strength aspirin as per Dr. Blanco's suggestion Physical Exam Vital Signs: Temp Pulse Resp BP Pulse Ox 97.8 F 75 16 178/99 H 98 09/29/17 07:52 09/29/17 14:00 09/29/17 07:52 09/29/17 07:52 09/29/17 07:52 Intake & Output 09/28/17 09/29/17 09/30/17 06:59 06:59 06:59 Intake Total 2130 2894 Balance 2130 2894 Weight 75.4 kg 75.5 kg General appearance: PRESENT: no acute distress, well-developed, well-nourished Head exam: PRESENT: atraumatic, normocephalic Eye exam: PRESENT: conjunctiva pink, EOMI, PERRLA. ABSENT: scleral icterus Ear exam: PRESENT: normal external ear exam Mouth exam: PRESENT: moist, tongue midline Neck exam: ABSENT: carotid bruit, JVD, lymphadenopathy, thyromegaly Respiratory exam: PRESENT: clear to auscultation akila. ABSENT: rales, rhonchi, wheezes Cardiovascular exam: PRESENT: RRR. ABSENT: diastolic murmur, rubs, systolic murmur Pulses: PRESENT: normal dorsalis pedis pul Vascular exam: PRESENT: normal capillary refill GI/Abdominal exam: PRESENT: normal bowel sounds, soft. ABSENT: distended, guarding, mass, organolmegaly, rebound, tenderness Rectal exam: PRESENT: deferred Extremities exam: PRESENT: full ROM. ABSENT: calf tenderness, clubbing, pedal edema Neurological exam: PRESENT: alert, awake, oriented to person, oriented to place , oriented to time, oriented to situation, CN II-XII grossly intact. ABSENT: motor sensory deficit Psychiatric exam: PRESENT: appropriate affect, normal mood. ABSENT: homicidal ideation, suicidal ideation Skin exam: PRESENT: dry, intact, warm. ABSENT: cyanosis, rash Results Laboratory Results: 09/29/17 04:06 09/29/17 04:06 09/29/17 09/29/17 04:06 04:06 WBC 6.8 RBC 4.71 Hgb 14.2 Hct 42.1 MCV 89 MCH 30.2 MCHC 33.8 RDW 13.0 Plt Count 244 Sodium 146.1 H Potassium 4.2 Chloride 109 H Carbon Dioxide 28 Anion Gap 9 BUN 15 Creatinine 0.63 Est GFR ( Amer) > 60 Est GFR (Non-Af Amer) > 60 Glucose 90 Calcium 9.6 09/27/17 09/27/17 09/29/17 13:00 18:02 04:06 Creatine Kinase 27 L CK-MB (CK-2) Troponin I < 0.012 0.014 09/29/17 09/29/17 09/29/17 04:06 10:20 10:20 Creatine Kinase 29 L CK-MB (CK-2) 0.24 0.31 Troponin I < 0.012 < 0.012 Impressions: Chest X-Ray 09/27/17 07:28 IMPRESSION: No acute cardiopulmonary findings. Chest/Abdomen CTA 09/27/17 07:29 IMPRESSION: No CT angio evidence of acute pulmonary emboli. No thoracic aortic dissection. Postoperative seroma upper inner quadrant left breast Qualifiers - * PATIENT BEING DISCHARGED WITH ANY OF THE FOLLOWING DIAGNOSIS: No Plan Time Spent: Less than 30 Minutes
[2017-09-29 16:34] VITALS: BP 145/88
[2017-09-29 17:05] LABS: CREATINE KINASE MB < 0.22 ng/mL (<4.55); TROPONIN I < 0.012 ng/mL
--- NOTE | 2017-09-29 22:40 | PROGRESS NOTE E ---
Progress Note NAME: TERRY WILSON : 1950 AGE: 67Y DATE: 09/29/2017 ROOM: 322 SUBJECTIVE: The patient remains in sinus rhythm. There are no arrhythmias. The patient denies any chest pain or discomfort. There is no shortness of breath, there is no PND or orthopnea. She complains of feeling rather weak soon as she takes the sotalol, but this resolves over time. There is no leg edema. There is no recurrence of atrial fibrillation. The patient's QTC is within reasonable limits. There is no atrial or ventricular arrhythmias on the monitor/telemetry. OBJECTIVE: GENERAL: The patient is well-developed, well-nourished, in no acute distress. VITAL SIGNS: She is afebrile with a temperature of 97.8 degrees Fahrenheit. Pulse is 84 beats per minute. Blood pressure 178/99, respirations 16 per minute. O2 sats are 98% on room air. HEENT: Head is atraumatic, normocephalic. Eyes: Pupils are equal, round, regular, reactive to light and accommodation. Extraocular movements are normal. There is no conjunctival pallor. There is no scleral icterus. ENT is negative. NECK: Supple. There is no JVD. There is no lymphadenopathy. Carotids are equal. There is no bruit. Trachea is central. LUNGS: Clear to auscultation and percussion. There is no chest wall tenderness. HEART: S1, S2 heard. There is no S3 gallop. There is no S4 gallop. There is a systolic murmur in the left sternal border of the apex. There is no rub. ABDOMEN: Soft, nontender. There is no hepatosplenomegaly. Bowel sounds are well heard. There is no tender areas or masses. There is no rebound, guarding, or rigidity. EXTREMITIES: Femorals are well felt. There are no femoral bruits. Leg pulses are well felt. There is no pedal edema. There is no cyanosis or clubbing. There is no DVT or cellulitis. Capillary refill is normal. OFFICIAL COURT REPORTER: The patient is conscious, awake, alert, oriented x3 with no focal deficit. PSYCHIATRIC: The patient's judgment and insight are intact. Affect is normal. The patient's EKG shows sinus rhythm within normal limits. The QTC is 0.454. The patient's white count is 6800, hemoglobin 14.2, hematocrit 42.1, platelet count 244,000. The patient's sodium is 146, potassium 4.2, chloride 109, CO2 is 28. The patient's BUN is 15, creatinine 0.6. GFR greater than 60. Glucose 90, calcium 9.6. The patient's troponin-I is negative x3. ASSESSMENT: 1. NEW ONSET HYPERTENSION, which is uncontrolled. The patient has been given 5 mg of amlodipine and subsequently her blood pressure came down to 145/88. The patient is stable to be discharged on amlodipine and sotalol and aspirin. Controlled with medication. 2. PAROXYSMAL ATRIAL FIBRILLATION. 3. BREAST CANCER. Status post left lumpectomy, for radiation therapy. 4. FLOW MURMUR. PLAN: As mentioned earlier, will continue the patient on sotalol 40 mg p.o. twice daily/q.12 hours. Will continue the patient on amlodipine. Will recheck the patient's blood pressure as an outpatient. Will schedule the patient later on for IV Lexiscan Cardiolite stress study. Will also have the patient wear a 30-day event monitor to see the sequence of paroxysmal atrial fibrillation. Note that medications have been reviewed and discussed with the attending physician. Medical decision making is of moderate complexity. 40 minutes spent on this patient. More than 50% of the time spent on direct patient care. Will follow up the patient in the office. Will sign off. Note that the patient is full code. Her daughter is the surrogate healthcare decision maker. DICTATING PHYSICIAN: MAVERICK DURAN M.D. [id number] JADE#: [id number] ID: [id number] JOB#: [id number] ACCT: [id number] cc: >
[2017-09-30] MEDS ORDERED: AMLODIPINE BESYLATE 5 MG TABLET PO SCH (10:00)
== END 2017-09-29 17:09 | disposition home or self-care (01) | DRG 310 ==
LOC: ER 06:51 → EH 08:35 → 3W 10:24
PROVIDERS: ADMIT Internal Medicine; ATTEND Internal Medicine
DX: I48.0 Paroxysmal atrial fibrillation (principal); C50.912 Malignant neoplasm of unspecified site of left female breast; R01.1 Cardiac murmur, unspecified; I10 Essential (primary) hypertension; Z79.82 Long term (current) use of aspirin; Z90.710 Acquired absence of both cervix and uterus; Z88.2 Allergy status to sulfonamides; Z98.890 Other specified postprocedural states
CPT/HCPCS: 36415; 71045; 71275; 80048; 80053; 81001; 82272; 82550; 82553; 83735; 83880; 84439; 84443; 84481; 84484; 85025; 85027; 85610; 85730; 93005; 93010; 93306; 96365; 96375; 96376; 99285; J0360; J1160; J1644; J1650; J3490

== ENCOUNTER → 2017-10-06 | Outpatient (CLI) | payer MEDICARE, OTHER ==
[2017-10-06 10:40] LABS: ABSOLUTE BASOPHILS # (AUTO) 0.1 10^3/uL (0.0-0.2); ABSOLUTE EOSINOPHILS # (AUTO) 0.1 10^3/uL (0.0-0.6); ABSOLUTE LYMPHOCYTES (AUTO) 1.7 10^3/uL (0.5-4.7); ABSOLUTE MONOCYTES (AUTO) 0.4 10^3/uL (0.1-1.4); ABSOLUTE NEUT (AUTO) 4.4 10^3/uL (1.7-8.2); BASOPHILS % (AUTO) 0.9 % (0-2); EOSINOPHILS % (AUTO) 1.7 % (0-6); HEMATOCRIT 39.9 % (36.0-47.0); HEMOGLOBIN 13.6 g/dL (12.0-15.5); LYMPHOCYTES % (AUTO) 24.8 % (13-45); MEAN CORPUSCULAR HEMOGLOBIN 30.5 pg (27.0-33.4); MEAN CORPUSCULAR HGB CONC 34.2 g/dL (32.0-36.0); MEAN CORPUSCULAR VOLUME 89 fl (80-97); MONOCYTES % (AUTO) 6.4 % (3-13); PLATELET COUNT 246 10^3/uL (150-450); RED BLOOD COUNT 4.48 10^6/uL (3.72-5.28); RED CELL DISTRIBUTION WIDTH 13.1 % (11.5-14.0); SEGMENTED NEUTROPHILS % (AUTO) 66.2 % (42-78); TOTAL CELLS COUNTED % (AUTO) 100 %; WHITE BLOOD COUNT 6.7 10^3/uL (4.0-10.5)
[2017-10-06 10:58] LABS: ALANINE AMINOTRANSFERASE 68 U/L (9-52); ALBUMIN 3.8 g/dL (3.5-5.0); ALKALINE PHOSPHATASE 64 U/L (38-126); ASPARTATE AMINO TRANSFERASE 33 U/L (14-36); BILIRUBIN,DIRECT 0.2 mg/dL (0.0-0.4); BILIRUBIN,TOTAL 0.2 mg/dL (0.2-1.3); TOTAL PROTEIN 6.3 g/dL (6.3-8.2)
== END ==
LOC: OD 10:04
PROVIDERS: ATTEND Radiology Radiation Oncology
DX: C50.212 Malignant neoplasm of upper-inner quadrant of left female breast (principal); Z17.0 Estrogen receptor positive status [ER+]
CPT/HCPCS: 36415; 80076; 85025

== ENCOUNTER → 2018-09-07 | Outpatient (CLI) | payer MEDICARE, OTHER ==
--- NOTE | 2018-09-07 23:26 | EKG REPORT ---
SEVERITY:- NORMAL ECG - SINUS RHYTHM : Confirmed by: Leydi Blanco MD 07-Sep-2018 23:25:52
== END ==
LOC: OD 14:50
PROVIDERS: ATTEND Nurse Practitioner Primary Care
DX: I48.91 Unspecified atrial fibrillation (principal); R00.1 Bradycardia, unspecified
CPT/HCPCS: 93005; 93010

== ENCOUNTER 2019-02-01 21:38 | Emergency (ER) | payer MEDICARE, OTHER ==
[2019-02-01 21:45] VITALS: BP 152/70
== END 2019-02-01 21:44 | disposition left against medical advice (07) ==
LOC: ER 21:38
DX: Z53.21 Procedure and treatment not carried out due to patient leaving prior to being seen by health care provider (principal)

== ENCOUNTER 2019-08-26 22:32 | Observation (INO) | payer MEDICARE, OTHER ==
--- NOTE | 2019-08-26 23:48 | ER Document Report ---
ED Medical Screen (RME) - General Chief Complaint: Chest Pain Stated Complaint: CHEST PAIN Time Seen by Provider: 08/26/19 23:44 Primary Care Provider: MATTHEW GARCIA MD [Primary Care Provider] - Follow up as needed Notes: HPI: 69-year-old female with history of atrial fibrillation in the past for which she takes sotalol presenting for sudden increase in her heart rate tonight where she felt some heaviness in the chest and a sensation of the heart beating up into her neck. Patient states she did take her dose of sotalol around 7 PM and it is improved slightly but she still feels some heaviness in the chest. PHYSICAL EXAMINATION: Patient's EKG shows atrial fibrillation with a ventricular rate of 129. On auscultation patient's lung sounds are clear but she does have irregularly irregular heartbeat. I have greeted and performed a rapid initial assessment of this patient. A comprehensive ED assessment and evaluation of the patient, analysis of test results and completion of medical decision making process will be conducted by an additional ED providers. TRAVEL OUTSIDE OF THE [place] IN LAST 30 DAYS: No - Related Data Allergies/Adverse Reactions: Sulfa (Sulfonamide Antibiotics) Allergy (Verified 09/27/17 07:44) Past Medical History Renal/ Medical History: Denies: Hx Peritoneal Dialysis Malignancy Medical History: Reports: Hx Breast Cancer - Details unknown Past Surgical History: Reports: Hx Cholecystectomy, Hx Hysterectomy, Hx Kidney (Renal Surgery) - right nephrectomy, Hx Mastectomy - left, Other - Left lumpectomy as well as nephrectomy Physical Exam - Vital signs Vitals: Temp Pulse Resp BP Pulse Ox 98.4 F 82 18 151/94 H 95 08/26/19 22:43 08/26/19 22:43 08/26/19 22:43 08/26/19 22:43 08/26/19 22:43 Course - Vital Signs Vital signs: Temp Pulse Resp BP Pulse Ox 98.4 F 82 18 151/94 H 95 08/26/19 22:43 08/26/19 22:43 08/26/19 22:43 08/26/19 22:43 08/26/19 22:43 Doctor's Discharge - Discharge Referrals: MATTHEW GARCIA MD [Primary Care Provider] - Follow up as needed
[2019-08-27 01:15] LABS: ABSOLUTE BASOPHILS # (AUTO) 0.1 10^3/uL (0.0-0.2); ABSOLUTE EOSINOPHILS # (AUTO) 0.2 10^3/uL (0.0-0.6); ABSOLUTE LYMPHOCYTES (AUTO) 1.6 10^3/uL (0.5-4.7); ABSOLUTE MONOCYTES (AUTO) 0.6 10^3/uL (0.1-1.4); ABSOLUTE NEUT (AUTO) 5.3 10^3/uL (1.7-8.2); BASOPHILS % (AUTO) 0.8 % (0-2); EOSINOPHILS % (AUTO) 2.2 % (0-6); HEMATOCRIT 42.2 % (36.0-47.0); HEMOGLOBIN 14.6 g/dL (12.0-15.5); MEAN CORPUSCULAR HEMOGLOBIN 31.3 pg (27.0-33.4); MEAN CORPUSCULAR HGB CONC 34.5 g/dL (32.0-36.0); MEAN CORPUSCULAR VOLUME 91 fl (80-97); MONOCYTES % (AUTO) 7.3 % (3-13); PLATELET COUNT 236 10^3/uL (150-450); RED BLOOD COUNT 4.66 10^6/uL (3.72-5.28); RED CELL DISTRIBUTION WIDTH 13.5 % (11.5-14.0); SEGMENTED NEUTROPHILS % (AUTO) 68.7 % (42-78); TOTAL CELLS COUNTED % (AUTO) 100 %; WHITE BLOOD COUNT 7.7 10^3/uL (4.0-10.5)
[2019-08-27] MEDS ORDERED: DILTIAZEM HCL INJ 25 MG/5 ML VIAL IV ONE (01:16)
[2019-08-27 01:21] LABS: INTERNATIONAL RATION (INR) 1.02; PROTHROMBIN TIME 13.5 SEC (11.4-15.4)
[2019-08-27 01:35] LABS: ALBUMIN 4.3 g/dL (3.5-5.0); ALKALINE PHOSPHATASE 78 U/L (38-126); ANION GAP 6 (5-19); ASPARTATE AMINO TRANSFERASE 23 U/L (14-36); BILIRUBIN,TOTAL 0.3 mg/dL (0.2-1.3); BLOOD UREA NITROGEN 20 mg/dL (7-20); CALCIUM 9.6 mg/dL (8.4-10.2); CARBON DIOXIDE 28 mmol/L (22-30); CHLORIDE 107 mmol/L (98-107); GLUCOSE 109 mg/dL (75-110); POTASSIUM 4.3 mmol/L (3.6-5.0)
--- NOTE | 2019-08-27 02:03 | RADIOLOGY REPORT (SQ) ---
EXAM DESCRIPTION: XR CHEST 1 VIEW COMPLETED DATE/TME: 08/26/2019 23:47 CLINICAL HISTORY: 69 years, Female, chest pain COMPARISON: None. NUMBER OF VIEWS: One TECHNIQUE: AP view of the chest LIMITATIONS: None. FINDINGS: The lungs are clear. The heart is at the upper limit of normal in size. There is no pneumothorax or pleural effusion. Left axillary clips are noted. There is no acute fracture. No intraperitoneal free air. IMPRESSION: No acute cardiopulmonary abnormality. copyright 2010 [employer]- All Rights Reserved
--- NOTE | 2019-08-27 02:35 | ER Document Report ---
ED Cardiac - General Chief Complaint: Chest Pain Stated Complaint: CHEST PAIN Time Seen by Provider: 08/26/19 23:44 Notes: 69-year-old female with a history of A. fib and hypertension. Presenting today for heart palpitations and chest heaviness. States symptoms started at 10:00 tonight. There is some mild radiation up her left neck. She Currently she denies any chest pain, heaviness or SOB at this time. She does continue to feel heart palpitations. Says she takes her aspirin every other day but when symptoms started her son had her take 10 baby aspirin. Initially diagnosed with A. fib 2 years ago and has been taking sotalol 40 mg p.o. twice daily. She sees a a/c technician down in [place]. PCM is Fadia Gonzalez. Denies any headaches fevers chills abdominal pain or additional symptoms. TRAVEL OUTSIDE OF THE [place] IN LAST 30 DAYS: No - Related Data Allergies/Adverse Reactions: Sulfa (Sulfonamide Antibiotics) Allergy (Verified 09/27/17 07:44) Home Medications: sotalol Past Medical History - Social History Smoking Status: Never Smoker Family History: DM, Other - CHF Patient has homicidal ideation: No - Past Medical History Cardiac Medical History: Reports: Hx Atrial Fibrillation Pulmonary Medical History: Reports: None EENT Medical History: Reports: None Neurological Medical History: Reports: None Endocrine Medical History: Reports: None Renal/ Medical History: Reports: None. Denies: Hx Peritoneal Dialysis Malignancy Medical History: Reports: Hx Breast Cancer - Details unknown GI Medical History: Reports: None Psychiatric Medical History: Reports: None Past Surgical History: Reports: Hx Cholecystectomy, Hx Hysterectomy, Hx Kidney (Renal Surgery) - right nephrectomy, Hx Mastectomy - left, Other - Left lumpectomy as well as nephrectomy Review of Systems - Review of Systems Constitutional: No symptoms reported EENT: No symptoms reported Cardiovascular: See HPI Respiratory: See HPI Gastrointestinal: No symptoms reported Genitourinary: No symptoms reported Female Genitourinary: No symptoms reported Musculoskeletal: No symptoms reported Skin: No symptoms reported Physical Exam - Vital signs Vitals: Temp Pulse Resp BP Pulse Ox 98.4 F 82 18 151/94 H 95 08/26/19 22:43 08/26/19 22:43 08/26/19 22:43 08/26/19 22:43 08/26/19 22:43 Interpretation: Hypertensive, Tachycardic - Notes Notes: Adult General: GENERAL: Alert, interacts well. No acute distress HEAD: Normocephalic, atraumatic EYES: Pupils equal, round and reactive to light. Extraocular movements intact. ENT: Oral mucosa moist, tongue midline. Oropharynx unremarkable. Airway patent. Nares patent, sinuses nontender, ear canals unremarkable, TMs intact. NECK: Full range of motion. Supple. Trachea midline. No lymphadenopathy. LUNGS: Clear to auscultation bilaterally, no wheezes, rales, or rhonchi. No respiratory distress. Nontender chest wall. HEART: irregularly irregular rhythm. No murmurs, rubs or gallops. ABDOMEN: Soft, nontender. Nondistended. GENITOURINARY: Deferred EXTREMITIES: Moves all 4 extremities spontaneously. No edema, normal radial and dorsal pedis pulses bilaterally. BACK: Moves all extremities with full range of motion. NEUROLOGICAL: Alert and oriented x3. Normal speech. PSYCH: Normal affect, normal mood. SKIN: Warm, dry, normal turgor. No rashes or lesions noted. Course - Re-evaluation Re-evalutation: 69-year-old female presenting with A. fib RVR starting at 10 PM yesterday. States that she developed chest heaviness and shortness of breath. She took 10 baby aspirin. Chest heaviness resolved and shortness of breath resolved but she continued to remain in A. fib RVR. She was provided Cardizem 20 mg. Her heart rate dropped to between the 80s and 100s and remained in A. fib. Initial troponin is negative. EKG shows A. fib, with no ST segment elevations or depressions. The rest of her chemistries are unremarkable. Believe patient could benefit from inpatient stay for ACS rule out due to her afib RVR not resolving when the chest heaviness resolved. Discussed case with Dr. blair. Is in agreement that patient should be considered for observation. Discussed with Dr. Hagan, who would like to wait on the repeat troponin for final dispo. Second troponin came back negative. Patient has had a history of echo/stress test about 25 years ago. PERC score is 2, low suspicion for PE. Heart score of 3. Dr. Hagan was called back to inform him of results and he stated that patient will be admitted to the [facility]. Patient admission initiated. - Vital Signs Vital signs: Temp Pulse Resp BP Pulse Ox 97.8 F 82 17 99/69 L 91 L 08/27/19 06:30 08/26/19 22:43 08/27/19 07:01 08/27/19 07:00 08/27/19 07:01 - Laboratory Result Diagrams: 08/27/19 01:00 08/27/19 01:00 Discharge - Discharge Clinical Impression: Atrial fibrillation Qualifiers: Atrial fibrillation type: unspecified Qualified Code(s): I48.91 - Unspecified atrial fibrillation Condition: Stable Disposition: ADMITTED INPATIENT Admitting Provider: Bentley (Hospitalist) Unit Admitted: [facility]
[2019-08-27] MEDS ORDERED: ACETAMINOPHEN 325 MG TABLET PO PRN (04:07)
[2019-08-27] MEDS ORDERED: DILTIAZEM HCL/D5W 125 MG/125 ML RTUINJ IV PRN (04:07)
[2019-08-27] MEDS ORDERED: MAG HYDROX/AL HYDROX/SIMETH SUSP 30 ML UDCUP PO PRN (04:07)
[2019-08-27] MEDS ORDERED: NITROGLYCERIN 0.4 MG/TAB 25 TAB/BOTTLE SL PRN (04:07)
[2019-08-27] MEDS ORDERED: ENOXAPARIN SODIUM INJ 80 MG/0.8 ML DISP.SYRIN SUBCUT ONE (04:45)
--- NOTE | 2019-08-27 06:21 | PDOC H&P ---
History of Present Illness Admission Date/PCP: 08/27/19 04:42 MATTHEW GARCIA MD Patient complains of: Palpitations History of Present Illness: TERRY WILSON is a 69 year old female with a past medical history of paroxysmal atrial fibrillation on sotalol and aspirin without anticoagulation. She presents with several days of palpitations becoming worse developing chest tightness approximately 8 hours ago prompting her to seek evaluation emergency department where she was found to have A. fib with RVR in the 130s. She is placed on IV Cardizem and referred to the hospitalist for admission. Patient denies a recent change in her [id number] or prescribed medication regiment. She denies diet supplements, energy drinks but admits to at least 2 caffeinated beverages daily. She does admit to excessive stress during the COVID pandemic having to learn new software while working from home which is led to unresolved insomnia. She is otherwise felt well denying heat or cold intolerance or change in bowel habits. Past Medical History Cardiac Medical History: Reports: Atrial Fibrillation Malignancy Medical History: Reports: Breast Cancer - Details unknown Psychiatric Medical History: Denies: Alcohol Dependency, Tobacco Dependency Past Surgical History Past Surgical History: Reports: Cholecystectomy, Hysterectomy, Mastectomy - left, Other - Left lumpectomy as well as nephrectomy Social History Information Source: Patient, [facility] Records Smoking Status: Never Smoker Frequency of Alcohol Use: None Drugs: None Hx Prescription Drug Abuse: No - Advance Directive Resuscitation Status: Full Code Family History Family History: Hypertension Parental Family History Reviewed: Yes Children Family History Reviewed: Yes Sibling(s) Family History Reviewed.: Yes Medication/Allergy Home Medications: Amlodipine Besylate [Norvasc 5 mg Tablet] 5 mg PO DAILY #30 tablet 09/29/17 Aspirin [Aspirin 325 mg Tablet] 325 mg PO DAILY tablet 09/29/17 Sotalol HCl [Betapace 80 mg Tablet] 40 mg PO Q12 #60 tablet 09/29/17 Allergies/Adverse Reactions: Sulfa (Sulfonamide Antibiotics) Allergy (Verified 09/27/17 07:44) Review of Systems Constitutional: ABSENT: chills, fever(s), headache(s), weight gain, weight loss Eyes: ABSENT: visual disturbances Ears: ABSENT: hearing changes Cardiovascular: PRESENT: as per HPI, palpitations. ABSENT: chest pain, dyspnea on exertion, edema, orthropnea Respiratory: ABSENT: cough, hemoptysis Gastrointestinal: ABSENT: abdominal pain, constipation, diarrhea, hematemesis, hematochezia, nausea, vomiting Genitourinary: ABSENT: dysuria, hematuria Musculoskeletal: ABSENT: joint swelling Integumentary: ABSENT: rash, wounds Neurological: ABSENT: abnormal gait, abnormal speech, confusion, dizziness, focal weakness, syncope Psychiatric: ABSENT: anxiety, depression, homidical ideation, suicidal ideation Endocrine: ABSENT: cold intolerance, heat intolerance, polydipsia, polyuria Hematologic/Lymphatic: ABSENT: easy bleeding, easy bruising Physical Exam Vital Signs: Temp Pulse Resp BP Pulse Ox 98.4 F 82 11 L 107/64 97 08/26/19 23:46 08/26/19 22:43 08/27/19 06:01 08/27/19 06:00 08/27/19 06:01 Intake & Output 08/25/19 08/26/19 08/27/19 11:59 11:59 11:59 Intake Total 4 Balance 4 Weight 80.9 kg General appearance: PRESENT: no acute distress, well-developed, well-nourished Head exam: PRESENT: atraumatic, normocephalic Eye exam: PRESENT: conjunctiva pink, EOMI, PERRLA. ABSENT: scleral icterus Ear exam: PRESENT: normal external ear exam Mouth exam: PRESENT: moist, tongue midline Neck exam: ABSENT: carotid bruit, JVD, lymphadenopathy, thyromegaly Respiratory exam: PRESENT: clear to auscultation akila. ABSENT: rales, rhonchi, wheezes Cardiovascular exam: PRESENT: irregular rhythm. ABSENT: diastolic murmur, rubs, systolic murmur Pulses: PRESENT: normal dorsalis pedis pul Vascular exam: PRESENT: normal capillary refill GI/Abdominal exam: PRESENT: normal bowel sounds, soft. ABSENT: distended, guarding, mass, organolmegaly, rebound, tenderness Rectal exam: PRESENT: deferred Extremities exam: PRESENT: full ROM. ABSENT: calf tenderness, clubbing, pedal edema Neurological exam: PRESENT: alert, awake, oriented to person, oriented to place, oriented to time, oriented to situation, CN II-XII grossly intact. ABSENT: m otor sensory deficit Psychiatric exam: PRESENT: appropriate affect, normal mood. ABSENT: homicidal ideation, suicidal ideation Skin exam: PRESENT: dry, intact, warm. ABSENT: cyanosis, rash Results Laboratory Results: 08/27/19 01:00 08/27/19 01:00 08/27/19 08/27/19 08/27/19 01:00 01:00 01:00 WBC 7.7 RBC 4.66 Hgb 14.6 Hct 42.2 MCV 91 MCH 31.3 MCHC 34.5 RDW 13.5 Plt Count 236 Seg Neutrophils % 68.7 Sodium 140.8 Potassium 4.3 Chloride 107 Carbon Dioxide 28 Anion Gap 6 BUN 20 Creatinine 0.69 Est GFR ( Amer) > 60 Glucose 109 Calcium 9.6 Magnesium 2.1 Total Bilirubin 0.3 AST 23 Alkaline Phosphatase 78 Total Protein 7.0 Albumin 4.3 TSH 4.42 08/27/19 08/27/19 01:00 03:14 Troponin I < 0.012 < 0.012 Impressions: Chest X-Ray 08/26/19 23:47 IMPRESSION: No acute cardiopulmonary abnormality. copyright 2010 [employer]- All Rights Reserved Assessment and Plan - Diagnosis (1) Rapid atrial fibrillation Is this a current diagnosis for this admission?: Yes Plan: Likely secondary to excessive psychological stress or caffeine. She denies recent change in her sotalol dose of 40 twice daily. Continue IV Cardizem on IMCU with resumption of sotalol at 80 mg twice daily. Full dose prophylactic Lovenox initiated. Consider cardiology consultation. (2) Chest tightness Is this a current diagnosis for this admission?: Yes Plan: Likely secondary to uncontrolled A. fib, resolved with rate control, follow-up TSH and cardiac enzymes. (3) Insomnia Is this a current diagnosis for this admission?: Yes Plan: Reassurance and education caffeine reduction and sleep hygiene. - Time Time Spent with patient: 25-34 minutes - Inpatient Certification Medical Necessity: Need Close Monitoring Due to Risk of Patient Decompensation
--- NOTE | 2019-08-27 10:57 | PDOC CONSULTATION ---
Consultation Consult Date: 08/27/19 Attending physician:: YEYO DOW Provider Consulted: URI NOBLES Consult reason:: Afib History of Present Illness Admission Date/PCP: 08/27/19 04:42 MATTHEW GARCIA MD History of Present Illness: TERRY WILSON is a 69 year old female with prior history of paroxysmal atrial fibrillation and syncope many years ago, lifelong non-smoker and without known family history of premature coronary artery disease who is consulted to our service for evaluation of atrial fibrillation. She states that she has been having atrial fibrillation for several years and is followed by Dr. Davis with [facility]. She had been in her usual state of health until last night when she began with palpitations and chest discomfort. It felt like her prior episodes of atrial fibrillation with racing heart and feeling palpitations in her neck therefore she came to the emergency room and was found to be in rapid atrial fibrillation. She was placed on a Cardizem drip with good results. She had been managed with a rhythm control strategy with sotalol 40 mg twice daily. She is found sitting up in her room feeling well and improved. She specifically denies palpitations, chest pain, shortness of breath, dizziness, lightheadedness, syncope and presyncope. Physical exam on 08/27/2019: GENERAL: Pleasant and conversational. Oriented x3 with normal mood. Not in acute distress. Well groomed and well developed. HEENT: Normocephalic, atraumatic. Pupils equal. Sclerae anicteric. Oropharynx moist. NECK: No JVD. No carotid bruits. LUNGS: Clear to auscultation bilaterally. Normal respiratory effort without the use of accessory muscles or intercostal retractions. CARDIOVASCULAR: Irregularly irregular rate and rhythm without murmurs, rubs, or gallops. PMI not displaced. EXTREMITIES: No edema, no cyanosis, no clubbing. +2 pulses femoral and pedal pulses bilaterally. SKIN: No lesions or rashes. MUSCULOSKELETAL: No chest tenderness to palpation. NEUROLOGIC: Nonfocal. No gross sensory or motor deficits bilateral upper or lower extremities. Past Medical History Cardiac Medical History: Reports: Atrial Fibrillation Pulmonary Medical History: Reports: None EENT Medical History: Reports: None Neurological Medical History: Reports: None Endocrine Medical History: Reports: None Renal/ Medical History: Reports: None Malignancy Medical History: Reports: Breast Cancer - Details unknown GI Medical History: Reports: None Psychiatric Medical History: Reports: None Denies: Alcohol Dependency, Tobacco Dependency Past Surgical History Past Surgical History: Reports: Cholecystectomy, Hysterectomy, Mastectomy - left, Other - Left lumpectomy as well as nephrectomy Social History Smoking Status: Never Smoker Frequency of Alcohol Use: None Drugs: None Hx Prescription Drug Abuse: No - Advance Directive Resuscitation Status: Full Code Family History Family History: DM, Other - CHF Parental Family History Reviewed: Yes Children Family History Reviewed: Yes Sibling(s) Family History Reviewed.: Yes Medication/Allergy Home Medications: Aspirin [Ecotrin 81 mg EC Tablet] 81 mg PO MOWEFR@1000 08/27/19 Sotalol HCl [Betapace 80 mg Tablet] 40 mg PO Q12 08/27/19 Allergies/Adverse Reactions: Sulfa (Sulfonamide Antibiotics) Allergy (Verified 08/27/19 09:02) Physical Exam Vital Signs: Temp Pulse Resp BP Pulse Ox 97.8 F 82 17 99/69 L 91 L 08/27/19 06:30 08/26/19 22:43 08/27/19 07:01 08/27/19 07:00 08/27/19 07:01 Intake & Output 08/26/19 08/27/19 08/28/19 06:59 06:59 06:59 Intake Total 4 26 Balance 4 26 Weight 80.9 kg Results Laboratory Results: 08/27/19 01:00 08/27/19 01:00 08/27/19 08/27/19 08/27/19 01:00 01:00 01:00 WBC 7.7 RBC 4.66 Hgb 14.6 Hct 42.2 MCV 91 MCH 31.3 MCHC 34.5 RDW 13.5 Plt Count 236 Seg Neutrophils % 68.7 Sodium 140.8 Potassium 4.3 Chloride 107 Carbon Dioxide 28 Anion Gap 6 BUN 20 Creatinine 0.69 Est GFR ( Amer) > 60 Glucose 109 Calcium 9.6 Magnesium 2.1 Total Bilirubin 0.3 AST 23 Alkaline Phosphatase 78 Total Protein 7.0 Albumin 4.3 TSH 4.42 08/27/19 08/27/19 01:00 03:14 Troponin I < 0.012 < 0.012 Impressions: Chest X-Ray 08/26/19 23:47 IMPRESSION: No acute cardiopulmonary abnormality. copyright 2011 [employer]- All Rights Reserved 08/27/19 01:00 06/05/20 01:00 MCV 91 fl (80-97) 08/27/19 01:00 MCH 31.3 pg (27.0-33.4) 08/27/19 01:00 MCHC 34.5 g/dL (32.0-36.0) 08/27/19 01:00 RDW 13.5 % (11.5-14.0) 08/27/19 01:00 Seg Neutrophils % 68.7 % (42-78) 08/27/19 01:00 Chloride 107 mmol/L (98-107) 08/27/19 01:00 Carbon Dioxide 28 mmol/L (22-30) 08/27/19 01:00 Anion Gap 6 (5-19) 08/27/19 01:00 Est GFR ( Amer) > 60 (>60) 08/27/19 01:00 Glucose 109 mg/dL (75-110) 08/27/19 01:00 Calcium 9.6 mg/dL (8.4-10.2) 08/27/19 01:00 Magnesium 2.1 mg/dL (1.6-2.3) 08/27/19 01:00 Total Bilirubin 0.3 mg/dL (0.2-1.3) 08/27/19 01:00 AST 23 U/L (14-36) 08/27/19 01:00 Alkaline Phosphatase 78 U/L (38-126) 08/27/19 01:00 Total Protein 7.0 g/dL (6.3-8.2) 08/27/19 01:00 Albumin 4.3 g/dL (3.5-5.0) 08/27/19 01:00 TSH 4.42 uIU/mL (0.47-4.68) 08/27/19 01:00 08/27/19 08/27/19 01:00 03:14 Troponin I < 0.012 < 0.012 Current Medication List Generic Name Dose Route Start Last Admin Trade Name Freq PRN Reason Stop Dose Admin Acetaminophen 650 mg 08/27/19 04:07 Tylenol 325 Mg Tablet PO 09/26/19 04:06 Q4HP PRN FOR HEADACHE Al Hydrox/Mg Hydrox/Simethicone 30 ml 08/27/19 04:07 Maalox Plus Susp 30 Udcup PO 09/26/19 04:06 Q4HP PRN HEARTBURN Atorvastatin Calcium 40 mg 08/27/19 22:00 Lipitor 40 Mg Tablet PO 09/26/19 21:59 QHS JAVAN Enoxaparin Sodium 80 mg 08/27/19 18:00 Lovenox Inj 80 Mg/0.8 Ml Disp.Syrin SUBCUT 09/26/19 17:59 Q12A JAVAN Diltiazem HCl 125 mg in 125 mls @ 0 mls/hr 08/27/19 04:07 08/27/19 07:05 Cardizem Rtu Inj 125 Mg-D5w 125 Ml Premix IV 09/26/19 04:06 10 mls/hr CONTINUOUS PRN 10 mls/hr THIS MED IS NOT "PRN" Titration Protocol Titrate Nitroglycerin 1 tab 08/27/19 04:07 Nitrostat 0.4 Mg (1/150 Gr) Tabs 25/Bottle SL Q5MP PRN FOR CHEST PAIN Sodium Chloride 2.5 ml 08/27/19 06:00 08/27/19 06:10 Saline Flush 2.5 Ml Monoject Prefil Syrin IV 09/26/19 05:59 Not Given Q8 JAVAN Discontinued Medications Generic Name Dose Route Start Last Admin Trade Name Freq PRN Reason Stop Dose Admin Diltiazem HCl 15 mg 08/27/19 01:16 08/27/19 01:28 Cardizem Inj 25 Mg/5 Ml Vial IV 08/27/19 01:17 15 mg NOW ONE Administration Enoxaparin Sodium 80 mg 08/27/19 04:45 08/27/19 04:49 Lovenox Inj 80 Mg/0.8 Ml Disp.Syrin SUBCUT 08/27/19 04:46 80 mg NOW ONE Administration Assessment & Plan - Diagnosis (1) Atrial fibrillation Qualifiers: Atrial fibrillation type: unspecified Qualified Code(s): I48.91 - Unspecified atrial fibrillation Plan: Very pleasant 69-year-old female with paroxysmal atrial fibrillation who was admitted last night in rapid atrial fibrillation. Her heart rate is well controlled at this point on very low-dose of Cardizem infusion. Her cardiac troponin has been negative x2 so far and she remains asymptomatic. Her chads 2 vascular score is 2 and, according to current guidelines, full anticoagulation is optional at this point. Recommendations: -Daily aspirin. -Discontinue Cardizem drip. -Restart outpatient regimen with sotalol 40 mg twice daily. -Continue with cardiac telemetry. -We will pursue a rate control strategy for now with outpatient medical regimen. -I tried to contact her sporting goods sales manager, Dr. Davis, and left a message for him to call me back and discuss his patient's case.
[2019-08-27] MEDS ORDERED: SOTALOL HCL 80 MG TABLET PO SCH (11:00)
--- NOTE | 2019-08-27 12:31 | EKG REPORT ---
SEVERITY:- ABNORMAL ECG - ATRIAL FIBRILLATION ABERRANT COMPLEX BORDERLINE PROLONGED QT INTERVAL : Confirmed by: Aaliyah Singh 27-Aug-2019 12:31:21
--- NOTE | 2019-08-27 12:31 | EKG REPORT ---
SEVERITY:- ABNORMAL ECG - ATRIAL FIBRILLATION VENTRICULAR PREMATURE COMPLEX : Confirmed by: Aaliyah Singh 27-Aug-2019 12:31:03
[2019-08-27] MEDS: ENOXAPARIN SODIUM INJ 80 MG/0.8 ML DISP.SYRIN SUBCUT SCH (17:21)
[2019-08-27] MEDS: SOTALOL HCL 80 MG TABLET PO SCH (21:07)
[2019-08-27] MEDS ORDERED: ATORVASTATIN CALCIUM 40 MG TABLET PO SCH (22:00)
[2019-08-28] MEDS: ENOXAPARIN SODIUM INJ 80 MG/0.8 ML DISP.SYRIN SUBCUT SCH (05:06)
--- NOTE | 2019-08-28 08:16 | PDOC PROGRESS REPORT ---
Subjective Progress Note for:: 08/28/19 Subjective:: TERRY WILSON is a 69 year old female with prior history of paroxysmal atrial fibrillation and syncope many years ago, lifelong non-smoker and without known family history of premature coronary artery disease who is consulted to our service for evaluation of atrial fibrillation. She states that she has been having atrial fibrillation for several years and is followed by Dr. Davis with [facility]. She had been in her usual state of health until last night when she began with palpitations and chest discomfort. It felt like her prior episodes of atrial fibrillation with racing heart and feeling palpitations in her neck therefore she came to the emergency room and was found to be in rapid atrial fibrillation. She was placed on a Cardizem drip with good results. She had been managed with a rhythm control strategy with sotalol 40 mg twice daily. She is found sitting up in her room feeling well and improved. She specifically denies palpitations, chest pain, shortness of breath, dizziness, lightheadedness, syncope and presyncope. 08/28/2019: The patient had an uneventful night and converted to sinus rhythm. She has no new cardiac complaints this morning. Physical exam on 08/28/2019: GENERAL: Pleasant and conversational. Oriented x3 with normal mood. Not in acute distress. Well groomed and well developed. HEENT: Normocephalic, atraumatic. Pupils equal. Sclerae anicteric. Oropharynx moist. NECK: No JVD. No carotid bruits. LUNGS: Clear to auscultation bilaterally. Normal respiratory effort without the use of accessory muscles or intercostal retractions. CARDIOVASCULAR: Regularly irregular rate and rhythm without murmurs, rubs, or gallops. PMI not displaced. EXTREMITIES: No edema, no cyanosis, no clubbing. +2 pulses femoral and pedal pulses bilaterally. SKIN: No lesions or rashes. MUSCULOSKELETAL: No chest tenderness to palpation. NEUROLOGIC: Nonfocal. No gross sensory or motor deficits bilateral upper or lower extremities. Reason For Visit: AFIB Physical Exam Vital Signs: Temp Pulse Resp BP Pulse Ox 97.9 F 90 20 124/62 95 08/28/19 03:37 08/28/19 03:37 08/28/19 03:37 08/28/19 03:37 08/28/19 03:37 Intake & Output 08/26/19 08/27/1908/27/20 06:59 06:59 06:59 Intake Total 4 1172 Output Total 900 Balance 4 272 Weight 80.9 kg 77.2 kg Results Laboratory Results: 08/27/19 01:00 08/27/19 01:00 08/27/19 08/27/19 08/27/19 01:00 03:14 10:14 Troponin I < 0.012 < 0.012 < 0.012 Impressions: Chest X-Ray 08/26/19 23:47 IMPRESSION: No acute cardiopulmonary abnormality. copyright 2011 [employer]- All Rights Reserved 08/27/19 01:00 08/27/19 01:00 MCV 91 fl (80-97) 08/27/19 01:00 MCH 31.3 pg (27.0-33.4) 08/27/19 01:00 MCHC 34.5 g/dL (32.0-36.0) 08/27/19 01:00 RDW 13.5 % (11.5-14.0) 08/27/19 01:00 Seg Neutrophils % 68.7 % (42-78) 08/27/19 01:00 Chloride 107 mmol/L (98-107) 08/27/19 01:00 Carbon Dioxide 28 mmol/L (22-30) 08/27/19 01:00 Anion Gap 6 (5-19) 08/27/19 01:00 Est GFR ( Amer) > 60 (>60) 08/27/19 01:00 Glucose 109 mg/dL (75-110) 08/27/19 01:00 Calcium 9.6 mg/dL (8.4-10.2) 08/27/19 01:00 Magnesium 2.1 mg/dL (1.6-2.3) 08/27/19 01:00 Total Bilirubin 0.3 mg/dL (0.2-1.3) 08/27/19 01:00 AST 23 U/L (14-36) 08/27/19 01:00 Alkaline Phosphatase 78 U/L (38-126) 08/27/19 01:00 Total Protein 7.0 g/dL (6.3-8.2) 08/27/19 01:00 Albumin 4.3 g/dL (3.5-5.0) 08/27/19 01:00 TSH 4.42 uIU/mL (0.47-4.68) 08/27/19 01:00 08/27/19 08/27/19 08/27/19 01:00 03:14 10:14 Troponin I < 0.012 < 0.012 < 0.012 Current Medication List Generic Name Dose Route Start Last Admin Trade Name Freleonor PRN Reason Stop Dose Admin Acetaminophen 650 mg 08/27/19 04:07 Tylenol 325 Mg Tablet PO 09/26/19 04:06 Q4HP PRN FOR HEADACHE Al Hydrox/Mg Hydrox/Simethicone 30 ml 08/27/19 04:07 Maalox Plus Susp 30 Udcup PO 09/26/19 04:06 Q4HP PRN HEARTBURN Atorvastatin Calcium 40 mg 08/27/19 22:00 08/27/19 21:07 Lipitor 40 Mg Tablet PO 09/26/19 21:59 40 mg QHS JAVAN Administration Enoxaparin Sodium 80 mg 08/27/19 18:00 08/28/19 05:06 Lovenox Inj 80 Mg/0.8 Ml Disp.Syrin SUBCUT 09/26/19 17:59 80 mg Q12A JAVAN Administration Nitroglycerin 1 tab 08/27/19 04:07 Nitrostat 0.4 Mg (1/150 Gr) Tabs 25/Bottle SL Q5MP PRN FOR CHEST PAIN Sodium Chloride 2.5 ml 08/27/19 06:00 08/28/19 05:07 Saline Flush 2.5 Ml Monoject Prefil Syrin IV 09/26/19 05:59 2.5 ml Q8 JAVAN Administration Sotalol HCl 40 mg 08/27/19 22:00 08/27/19 21:07 Betapace 80 Mg Tablet PO 09/26/19 10:59 40 mg Q12 JAVAN Administration Discontinued Medications Generic Name Dose Route Start Last Admin Trade Name Freq PRN Reason Stop Dose Admin Diltiazem HCl 15 mg 08/27/19 01:16 08/27/19 01:28 Cardizem Inj 25 Mg/5 Ml Vial IV 08/27/19 01:17 15 mg NOW ONE Administration Enoxaparin Sodium 80 mg 08/27/19 04:45 08/27/19 04:49 Lovenox Inj 80 Mg/0.8 Ml Disp.Syrin SUBCUT 08/27/19 04:46 80 mg NOW ONE Administration Diltiazem HCl 125 mg in 125 mls @ 0 mls/hr 08/27/19 04:07 08/27/19 11:30 Cardizem Rtu Inj 125 Mg-D5w 125 Ml Premix IV 09/26/19 04:06 0 mls/hr CONTINUOUS PRN 0 mls/hr THIS MED IS NOT "PRN" Titration Protocol Titrate Sotalol HCl 40 mg 08/27/19 11:00 08/27/19 10:51 Betapace 80 Mg Tablet PO 09/26/19 10:59 40 mg BID JAVAN Administration Assessment & Plan - Diagnosis (1) Atrial fibrillation Qualifiers: Atrial fibrillation type: unspecified Qualified Code(s): I48.91 - Unspecified atrial fibrillation Plan: Very pleasant 69-year-old female with paroxysmal atrial fibrillation who spontaneously converted to normal sinus rhythm. She remains asymptomatic. Her EKG this morning confirmed the presence of sinus rhythm. Her cardiac troponin has been negative x2. Her chads 2 vascular score is 2 and, according to current guidelines, full anticoagulation is optional at this point. Of note, she has not been anticoagulated in the outpatient setting. The patient can be discharged from the cardiovascular standpoint with follow-up with her outpatient animation producer, Dr. Davis. Recommendations: -Continue with current medical management. -May be discharged from the cardiovascular standpoint. -Follow-up with Dr. Davis.
[2019-08-28 08:59] VITALS: BP 124/73
[2019-08-28] MEDS: SOTALOL HCL 80 MG TABLET PO SCH (09:09)
--- NOTE | 2019-08-28 13:40 | PDOC DISCHARGE SUMMARY ---
Impression - Admit/DC Date/PCP Admission Date/Primary Care Provider: 08/27/19 04:42 MATTHEW GARCIA MD Discharge Date: 08/28/19 - Discharge Diagnosis (1) Rapid atrial fibrillation Is this a current diagnosis for this admission?: Yes - Additional Information Resuscitation Status: Full Code Discharge Diet: Cardiac Discharge Activity: Activity As Tolerated Referrals: MATTHEW GARCIA MD [Primary Care Provider] - Follow up as needed Home Medications: Aspirin [Ecotrin 81 mg EC Tablet] 81 mg PO MOWEFR@1000 08/27/19 Sotalol HCl [Betapace 80 mg Tablet] 40 mg PO Q12 08/27/19 History of Present Illiness History of Present Illness: TERRY WILSON is a 69 year old female with a past medical history of paroxysmal atrial fibrillation on sotalol and aspirin without anticoagulation. She presents with several days of palpitations becoming worse developing chest tightness approximately 8 hours ago prompting her to seek evaluation emergency department where she was found to have A. fib with RVR in the 130s. She is placed on IV Cardizem and referred to the hospitalist for admission. Patient denies a recent change in her [id number] or prescribed medication regiment. She denies diet supplements, energy drinks but admits to at least 2 caffeinated beverages daily. She does admit to excessive stress during the COVID pandemic having to learn new software while working from home which is led to unresolved insomnia. She is otherwise felt well denying heat or cold intolerance or change in bowel habits. Hospital Course Hospital Course: She converted to sinus rhythm on a Cardizem drip. She was then restarted on the dose of sotalol she was taking at home and has maintained sinus rhythm since. Her chadsvasc score is 2, and since she is in a sinus rhythm cardiology recom mended that she take an aspirin daily and full anticoagulation was not recommended. She sees a grade and center marker at [facility]. She will follow-up within 2 weeks. She was supposed to have an appointment about a month ago but canceled it. Her labs and examination were reassuring and she was discharged in stable condition. Physical Exam Vital Signs: Temp Pulse Resp BP Pulse Ox 97.8 F 75 16 124/73 95 08/28/19 10:08/28/19 10:08/28/19 10:08/28/19 10:05 08/28/19 10:05 Intake & Output 08/27/19 08/28/19 08/29/19 06:59 06:59 06:59 Intake Total 4 1172 Output Total 900 Balance 4 272 Weight 80.9 kg 77.2 kg General appearance: PRESENT: no acute distress, cooperative, disheveled Respiratory exam: PRESENT: clear to auscultation akila, symmetrical, unlabored. ABSENT: accessory muscle use, chest wall tenderness, crackles, prolonged expiratory phas, rhonchi, tachypnea, wheezes Cardiovascular exam: PRESENT: RRR, +S1, +S2 Pulses: PRESENT: normal carotid pulses Vascular exam: PRESENT: normal capillary refill GI/Abdominal exam: PRESENT: normal bowel sounds, soft. ABSENT: distended, guarding, rebound, tenderness Extremities exam: ABSENT: clubbing, pedal edema Musculoskeletal exam: PRESENT: normal inspection. ABSENT: deformity Neurological exam: PRESENT: alert, awake, oriented to person, oriented to place, oriented to situation Psychiatric exam: PRESENT: appropriate affect, normal mood Skin exam: PRESENT: dry, warm Results Laboratory Results: WBC 7.7 10^3/uL (4.0-10.5) 08/27/19 01:00 RBC 4.66 10^6/uL (3.72-5.28) 08/27/19 01:00 Hgb 14.6 g/dL (12.0-15.5) 08/27/19 01:00 Hct 42.2 % (36.0-47.0) 08/27/19 01:00 MCV 91 fl (80-97) 08/27/19 01:00 MCH 31.3 pg (27.0-33.4) 08/27/19 01:00 MCHC 34.5 g/dL (32.0-36.0) 08/27/19 01:00 RDW 13.5 % (11.5-14.0) 08/27/19 01:00 Plt Count 236 10^3/uL (150-450) 08/27/19 01:00 Lymph % (Auto) 21.0 % (13-45) 08/27/19 01:00 Frontier % (Auto) 7.3 % (3-13) 08/27/19 01:00 Eos % (Auto) 2.2 % (0-6) 08/27/19 01:00 Baso % (Auto) 0.8 % (0-2) 08/27/19 01:00 Absolute Neuts (auto) 5.3 10^3/uL (1.7-8.2) 08/27/19 01:00 Absolute Lymphs (auto) 1.6 10^3/uL (0.5-4.7) 08/27/19 01:00 Absolute Monos (auto) 0.6 10^3/uL (0.1-1.4) 08/27/19 01:00 Absolute Eos (auto) 0.2 10^3/uL (0.0-0.6) 08/27/19 01:00 Absolute Basos (auto) 0.1 10^3/uL (0.0-0.2) 08/27/19 01:00 Seg Neutrophils % 68.7 % (42-78) 08/27/19 01:00 PT 13.5 SEC (11.4-15.4) 08/27/19 01:00 INR 1.02 08/27/19 01:00 Sodium 140.8 mmol/L (137-145) 08/27/19 01:00 Potassium 4.3 mmol/L (3.6-5.0) 08/27/19 01:00 Chloride 107 mmol/L (98-107) 08/27/19 01:00 Carbon Dioxide 28 mmol/L (22-30) 08/27/19 01:00 Anion Gap 6 (5-19) 08/27/19 01:00 BUN 20 mg/dL (7-20) 08/27/19 01:00 Creatinine 0.69 mg/dL (0.52-1.25) 08/27/19 01:00 Est GFR ( Amer) > 60 (>60) 08/27/19 01:00 Est GFR (MDRD) Non-Af > 60 (>60) 08/27/19 01:00 Glucose 109 mg/dL (75-110) 08/27/19 01:00 Calcium 9.6 mg/dL (8.4-10.2) 08/27/19 01:00 Magnesium 2.1 mg/dL (1.6-2.3) 08/27/19 01:00 Total Bilirubin 0.3 mg/dL (0.2-1.3) 08/27/19 01:00 Direct Bilirubin 0.0 mg/dL (0.0-0.4) 08/27/19 01:00 Neonat Total Bilirubin Not Reportable 08/27/19 01:00 Neonat Direct Bilirubin Not Reportable 08/27/19 01:00 Neonat Indirect Bili Not Reportable 08/27/19 01:00 AST 23 U/L (14-36) 08/27/19 01:00 ALT 16 U/L (<35) 08/27/19 01:00 Alkaline Phosphatase 78 U/L (38-126) 08/27/19 01:00 Troponin I < 0.012 ng/mL 08/27/19 10:14 Total Protein 7.0 g/dL (6.3-8.2) 08/27/19 01:00 Albumin 4.3 g/dL (3.5-5.0) 08/27/19 01:00 TSH 4.42 uIU/mL (0.47-4.68) 08/27/19 01:00 08/27/19 08/27/19 08/27/19 01:00 03:14 10:14 Troponin I < 0.012 < 0.012 < 0.012 Impressions: Chest X-Ray 08/26/19 23:47 IMPRESSION: No acute cardiopulmonary abnormality. copyright 2010 [employer]- All Rights Reserved Plan Time Spent: Greater than 30 Minutes Stroke Is this a Stroke Patient?: No Acute Heart Failure - Is this a Heart Failure Patient?: No
--- NOTE | 2019-08-28 20:45 | EKG REPORT ---
SEVERITY:- NORMAL ECG - SINUS RHYTHM : Confirmed by: Aaliyah Singh 28-Aug-2019 20:44:09
== END 2019-08-28 10:45 | disposition home or self-care (01) ==
LOC: ER 22:32 → EH 08-27 04:42 → INTOOBSV 08-27 04:42 → 3N 08-27 08:50
PROVIDERS: ADMIT Internal Medicine; ATTEND Family Medicine
DX: I48.0 Paroxysmal atrial fibrillation (principal); G47.00 Insomnia, unspecified; Z56.6 Other physical and mental strain related to work; Z85.3 Personal history of malignant neoplasm of breast; Z90.49 Acquired absence of other specified parts of digestive tract; Z90.12 Acquired absence of left breast and nipple; Z90.5 Acquired absence of kidney; Z79.82 Long term (current) use of aspirin; Z82.49 Family history of ischemic heart disease and other diseases of the circulatory system; Z79.899 Other long term (current) drug therapy
CPT/HCPCS: 93005 ×2; 99285; 96374; 36415; 83735; 84443; 85025; 85610; 80053; 84484; 71045; 93010 ×2; A9270 ×3; J3490 ×4; J1650 ×2; G0378

== ENCOUNTER → 2019-09-08 | Outpatient (CLI) | payer MEDICARE, OTHER ==
--- NOTE | 2019-09-09 07:45 | WOMENS IMAGING REPORT ---
EXAM DESCRIPTION: 3D DX MAMMO BILAT IMAGES COMPLETED DATE/TIME: 09/08/2019 8:08 am REASON FOR STUDY: Z85.3 PERSONAL HISTORY OF MALIGNANT NEOPLASM OF BREAST Z85.3 PERSONAL HISTORY OF MALIGNANT NEOPLASM OF BREAST COMPARISON: 2018 multiple exams EXAM PARAMETERS: Standard craniocaudal and mediolateral oblique views of each breast recorded using digital acquisition and breast tomosynthesis. Read with the assistance of CAD: .reQall - [employer] Annual Campaign Manager Version 9.2 LIMITATIONS: None. FINDINGS: RIGHT BREAST MASSES: No suspicious masses. CALCIFICATIONS: No new or suspicious calcifications. ARCHITECTURAL DISTORTION: None. ASYMMETRY: None noted. OTHER: No other significant findings. LEFT BREAST MASSES: No suspicious masses. CALCIFICATIONS: No new or suspicious calcifications. ARCHITECTURAL DISTORTION: Benign postoperative architectural distortion medial left breast 9 o'clock position in the area of prior lumpectomy. ASYMMETRY: None noted. OTHER: No other significant finding. IMPRESSION: No mammographic/tomosynthesis evidence for malignancy bilaterally BREAST DENSITY: a. The breasts are almost entirely fatty. BIRAD: ASSESSMENT: 2 Benign findings. RECOMMENDATION: RECOMMENDED FOLLOW UP: Continue yearly mammography/tomosynthesis in August 2020 SPECIFIC INTERVENTION/IMAGING/CONSULTATION RECOMMENDED:No additional intervention/ imaging/consultati on needed at this time. COMMUNICATION:The negative/benign results were communicated to the patient. COMMENT: The patient has been notified of the results by letter per [place] requirements. Additional no tification policies are in place for contacting patient with suspicious or incomplete findings. Quality ID #[id number]: The [employer] recommends an annual screening mammogram for women aged 40 years or over. This facility utilizes a reminder system to ensure that all patients receive reminder letters, and/or direct phone calls for appointments. This includes reminders for routine scr eening mammograms, diagnostic mammograms, or other Breast Imaging Interventions when appropriate. Th is patient will be placed in the appropriate reminder system. TECHNICAL DOCUMENTATION: FINDING NUMBER: (1) ASSESSMENT: (1) JOB ID: [id number] 2010 [employer]- All Rights Reserved Reading location - IP/workstation name: [id number]
== END ==
LOC: WI 07:40
PROVIDERS: ATTEND Surgery
DX: Z85.3 Personal history of malignant neoplasm of breast (principal)
CPT/HCPCS: 77066; G0279; 77062

== ENCOUNTER 2019-11-15 12:02 | Emergency (ER) | payer MEDICARE, OTHER ==
[2019-11-15] MEDS ORDERED: NORMAL SALINE 1000 ML 1,000 ML IV ONE (13:01)
--- NOTE | 2019-11-15 13:02 | ER Document Report ---
ED Medical Screen (RME) - General Chief Complaint: Abdominal Pain Stated Complaint: ABDOMINAL PAIN Time Seen by Provider: 11/15/19 12:53 Primary Care Provider: MATTHEW GARCIA MD [Primary Care Provider] - Follow up as needed Mode of Arrival: Ambulatory Information source: Patient Notes: 69-year-old female presented to ED for complaint of abdominal pain x2-1/2 weeks with nausea and vomiting times a week and diarrhea times a week. She states she has had fevers from 99.5-100.7. She does not have a gallbladder does she does still have her appendix. She has had a hysterectomy. 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 She did have a bladder tumor which they determined was not cancer. She has had left breast cancer which started her with A. fib. She has had a normal blood pressure but sometimes her pulse is elevated. She is alert oriented respirations regular nonlabored speaking in full sentences. 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 I have greeted and performed a rapid initial assessment of this patient. A comprehensive ED assessment and evaluation of the patient, analysis of test results and completion of medical decision making process will be conducted by an additional ED providers. TRAVEL OUTSIDE OF THE [place] IN LAST 30 DAYS: No - Related Data Allergies/Adverse Reactions: Sulfa (Sulfonamide Antibiotics) Allergy (Verified 08/27/19 09:02) Past Medical History - Social History Chew tobacco use (# tins/day): No Frequency of alcohol use: None Drug Abuse: None - Past Medical History Cardiac Medical History: Reports: Hx Atrial Fibrillation Renal/ Medical History: Denies: Hx Peritoneal Dialysis Malignancy Medical History: Reports: Hx Breast Cancer - Details unknown Psychiatric Medical History: Denies: Hx Depression Past Surgical History: Reports: Hx Cholecystectomy, Hx Hysterectomy, Hx Kidney (Renal Surgery) - right nephrectomy, Hx Mastectomy - left, Other - Left lumpectomy as well as nephrectomy Physical Exam - Vital signs Vitals: Temp Pulse Resp BP Pulse Ox 98.4 F 98 16 109/67 98 11/15/19 12:15 11/15/19 12:15 11/15/19 12:15 11/15/19 12:15 11/15/19 12:15 Course - Vital Signs Vital signs: Temp Pulse Resp BP Pulse Ox 98.4 F 98 16 109/67 98 11/15/19 12:15 11/15/19 12:15 11/15/19 12:15 11/15/19 12:15 11/15/19 12:15 Doctor's Discharge - Discharge Referrals: MATTHEW GARCIA MD [Primary Care Provider] - Follow up as needed
[2019-11-15 13:27] LABS: ABSOLUTE BASOPHILS # (AUTO) 0.1 10^3/uL (0.0-0.2); ABSOLUTE LYMPHOCYTES (AUTO) 0.7 10^3/uL (0.5-4.7); ABSOLUTE MONOCYTES (AUTO) 0.9 10^3/uL (0.1-1.4); ABSOLUTE NEUT (AUTO) 8.9 10^3/uL (1.7-8.2); BASOPHILS % (AUTO) 0.6 % (0-2); EOSINOPHILS % (AUTO) 0.2 % (0-6); HEMATOCRIT 41.7 % (36.0-47.0); HEMOGLOBIN 14.4 g/dL (12.0-15.5); MEAN CORPUSCULAR HEMOGLOBIN 30.8 pg (27.0-33.4); MEAN CORPUSCULAR HGB CONC 34.4 g/dL (32.0-36.0); MEAN CORPUSCULAR VOLUME 89 fl (80-97); MONOCYTES % (AUTO) 8.1 % (3-13); PLATELET COUNT 472 10^3/uL (150-450); RED BLOOD COUNT 4.67 10^6/uL (3.72-5.28); RED CELL DISTRIBUTION WIDTH 12.3 % (11.5-14.0); SEGMENTED NEUTROPHILS % (AUTO) 84.1 % (42-78); TOTAL CELLS COUNTED % (AUTO) 100 %; WHITE BLOOD COUNT 10.6 10^3/uL (4.0-10.5)
[2019-11-15 14:02] LABS: ALBUMIN 3.5 g/dL (3.5-5.0); ALKALINE PHOSPHATASE 70 U/L (38-126); ANION GAP 10 (5-19); ASPARTATE AMINO TRANSFERASE 19 U/L (14-36); BILIRUBIN,DIRECT 0.3 mg/dL (0.0-0.4); BILIRUBIN,TOTAL 0.5 mg/dL (0.2-1.3); BLOOD UREA NITROGEN 13 mg/dL (7-20); CARBON DIOXIDE 29 mmol/L (22-30); CHLORIDE 96 mmol/L (98-107); GLUCOSE 111 mg/dL (75-110); POTASSIUM 4.2 mmol/L (3.6-5.0); TOTAL PROTEIN 6.1 g/dL (6.3-8.2)
--- NOTE | 2019-11-15 16:03 | RADIOLOGY REPORT (SQ) ---
EXAM DESCRIPTION: CT ABD/PELVIS ORAL ONLY IMAGES COMPLETED DATE/TIME: 11/15/2019 3:27 pm REASON FOR STUDY: Abdominal pain with nausea vomiting diarrhea times COMPARISON: None. TECHNIQUE: CT scan of the abdomen and pelvis performed without intravenous or oral contrast. Images reviewed with lung, soft tissue, and bone windows. Reconstructed coronal and sagittal MPR images revi ewed. All images stored on PACS. All CT scanners at this facility use dose modulation, iterative reconstruction, and/or weight based d osing when appropriate to reduce radiation dose to as low as reasonably achievable (ALARA). [facility]: Dose Right [facility]: CareDose [facility]: Dose Right [facility]: Teradose 4D [facility]: Smart Wise Data[employer]Media RADIATION DOSE: CT Rad equipment meets quality standard of care and radiation dose reduction techniq ues were employed. CTDIvol: 8.5 mGy. DLP: 487 mGy-cm.. LIMITATIONS: None. FINDINGS: LOWER CHEST: No significant findings. No nodules or infiltrates. NON-CONTRASTED LIVER, SPLEEN, ADRENALS: Too small to characterize hypoattenuated right hepatic lobe lesion, axial image 40, series 3. Evaluation limited by lack of IV contrast. PANCREAS: No masses. No peripancreatic inflammatory changes. GALLBLADDER: Prior cholecystectomy. RIGHT KIDNEY AND URETER: Prior right nephrectomy. LEFT KIDNEY AND URETER: No suspicious masses. Assessment limited by lack of IV contrast. No signifi cant calcifications. No hydronephrosis or hydroureter. AORTA AND RETROPERITONEUM: No aneurysm. No retroperitoneal masses or adenopathy. BOWEL AND PERITONEAL CAVITY: Moderate to large volume of ascites in the abdomen and pelvis. Extensi ve linear stranding in the omentum and a few small soft tissue subcentimeter nodules in the left uppe r quadrant of the abdomen, axial image 24, series 3. These findings raise the question of possible o mental metastatic disease. Colonic diverticulosis without evidence of diverticulitis. APPENDIX: Not visualized. PELVIS, BLADDER, AND ABDOMINAL WALL: Prior hysterectomy. Bladder normal. BONES: No significant findings. OTHER: Moderate to large sized hiatal hernia. IMPRESSION: 1. Moderate to large volume of ascites in the abdomen and pelvis. Extensive linear str anding in the omentum and a few small subcentimeter soft tissue nodules in the left upper quadrant of the abdomen. Considerations for this finding includes possible omental metastatic disease. Correla tion suggested. 2. Prior right nephrectomy, cholecystectomy and hysterectomy. 3. Too small to characterize hypoattenuated hepatic lesion. COMMENT: 1. The results of this examination were discussed with emergency department provider on at 15:56 hours. Quality ID # [id number]: Final reports with documentation of one or more dose reduction techniques (e.g., Au tomated exposure control, adjustment of the mA and/or kV according to patient size, use of iterative reconstruction technique) TECHNICAL DOCUMENTATION: JOB ID: [id number] 2010 [employer]- All Rights Reserved Reading location - IP/workstation name: [email or web address]
[2019-11-15 19:13] VITALS: BP 127/66
[2019-11-15 20:14] LABS: APPEARANCE,URINE CLOUDY; BILIRUBIN,URINE NEGATIVE (NEGATIVE); GLUCOSE, URINE NEGATIVE (NEGATIVE); KETONES,URINE NEGATIVE (NEGATIVE); LEUKOCYTE ESTERASE,URINE LARGE (NEGATIVE); NITRITE,URINE NEGATIVE (NEGATIVE); PROTEIN,URINE 100 mg/dL (NEGATIVE); URINE SPECIFIC GRAVITY 1.016
[2019-11-15 20:21] LABS: COLOR,URINE DARK YELLOW
--- NOTE | 2019-11-15 20:36 | ER Document Report ---
ED General - General Chief Complaint: Abdominal Pain Stated Complaint: ABDOMINAL PAIN Time Seen by Provider: 11/15/19 12:53 Primary Care Provider: MATTHEW GONZALEZ MD [NO LOCAL MD] - Follow up as needed Mode of Arrival: Ambulatory Notes: 69-year-old female presents emergency department complaining of abdominal pain. Patient states that she started having diarrhea 3 weeks ago after eating organic lettuce from [email or web address]. States that she was not concerned when she had diarrhea because she always has diarrhea every time she eats salad since her gallbladder was removed. States that she would eat the salad have diarrhea for few days and then ate the salad again which will bring back the diarrhea. After approximately a week she stopped eating the salad but she has been having persistent abdominal pain since then. The abdominal pain is a cramping tingling stabbing sensation diffusely across her abdomen that is worst in her periumbilical and suprapubic region. Patient states that the diarrhea has now stopped and she only has one liquid stool every 3 days. Has not taken any medication for this. Patient states that she has had intermittent fevers, a few days ago at her temperature hit a T-max of 100.7. Patient complains of nausea, decreased appetite, abdominal swelling with food and early satiety. States that she can eat 3-4 bites and that her abdomen swells and is full. Denies any blood in her stool. TRAVEL OUTSIDE OF THE [place] IN LAST 30 DAYS: No - Related Data Allergies/Adverse Reactions: Sulfa (Sulfonamide Antibiotics) Allergy (Verified 08/27/19 09:02) Past Medical History - General Information source: Patient - Social History Smoking Status: Never Smoker Chew tobacco use (# tins/day): No Frequency of alcohol use: None Drug Abuse: None Family History: DM, Other Patient has homicidal ideation: No - Past Medical History Cardiac Medical History: Reports: Hx Atrial Fibrillation Renal/ Medical History: Denies: Hx Peritoneal Dialysis Malignancy Medical History: Reports: Hx Breast Cancer - Details unknown Psychiatric Medical History: Denies: Hx Depression Past Surgical History: Reports: Hx Cholecystectomy, Hx Hysterectomy, Hx Kidney (Renal Surgery) - right nephrectomy, Hx Mastectomy - left, Other - Left lumpectomy as well as nephrectomy Review of Systems - Review of Systems Constitutional: No symptoms reported EENT: No symptoms reported Cardiovascular: No symptoms reported Gastrointestinal: See HPI -: Yes All other systems reviewed and negative Physical Exam - Vital signs Vitals: Temp Pulse Resp BP Pulse Ox 98.4 F 98 16 109/67 98 11/15/19 12:15 11/15/19 12:15 11/15/19 12:15 11/15/19 12:15 11/15/19 12:15 Interpretation: Normal - Notes Notes: GENERAL: Alert, interacts well. No acute distress. HEAD: Normocephalic, atraumatic EYES: Pupils equal, round and reactive to light, extraocular movements intact. ENT: Oral mucosa moist, tongue midline. NECK: Full range of motion, supple, trachea midline. LUNGS: Clear to auscultation bilaterally, no wheezes, rales or rhonchi, no respiratory distress. HEART: Regular rate and rhythm, no murmurs, gallops, rubs. ABDOMEN: Soft, mild diffuse tenderness to palpation, worst periumbilically, no ascites or fluid wave palpated, no guarding, no rigidity, no rebounding, nondistended, bowel sounds present in all 4 quadrants. EXTREMITIES: Moves all 4 extremities spontaneously, no edema, radial and dorsalis pedis pulses 2/4 bilaterally. No cyanosis. NEUROLOGICAL: Alert and oriented x3, normal speech. PSYCH: Normal mood, normal affect. SKIN: Warm, Dry, normal turgor. Course - Re-evaluation Re-evalutation: 11/15/19 20:39 CBC shows slight leukocytosis of 10.6, platelets elevated at 472, CMP shows slight low sodium 134.7, otherwise unremarkable, lipase normal, urinalysis shows large blood and large leukocyte Estrace. No bacteria. This has been sent for culture. Patient will not be treated at this time for infection as she does not have any dysuria or frequency. There are no bacteria on her urinalysis. Abdomen/Pelvis CT 11/15/19 12:59 IMPRESSION: 1. Moderate to large volume of ascites in the abdomen and pelvis. Extensive linear stranding in the omentum and a few small subcentimeter soft tissue nodules in the left upper quadrant of the abdomen. Considerations for this finding includes possible omental metastatic disease. Correlation suggested. 2. Prior right nephrectomy, cholecystectomy and hysterectomy. 3. Too small to characterize hypoattenuated hepatic lesion. Discussed this finding with patient and daughter. They are aware that we are very concerned for possible cancer. I then with the patient's permission discussed the case with Dr. Collins, Dr. Collins would like the patient to call her office first thing tomorrow morning to arrange follow-up. For the patient's nausea and pain she will be given a limited number of Reglan and Vicodin. Reglan is being used instead of Phenergan, Zofran or Compazine due to their interactions with sotalol. Patient will be discharged home. - Vital Signs Vital signs: Temp Pulse Resp BP Pulse Ox 98.3 F 88 18 127/66 H 97 11/15/19 19:10 11/15/19 19:10 11/15/19 19:10 11/15/19 19:10 11/15/19 19:10 - Laboratory Result Diagrams: 11/15/19 13:10 11/15/19 13:10 Laboratory results interpreted by me: 11/15/19 11/15/19 11/15/19 13:10 13:10 13:10 WBC 10.6 H Plt Count 472 H Lymph % (Auto) 7.0 L Absolute Neuts (auto) 8.9 H Seg Neutrophils % 84.1 H Sodium 134.7 L Chloride 96 L Glucose 111 H Total Protein 6.1 L Urine Protein 100 H Urine Blood LARGE H Urine Urobilinogen 2.0 H Ur Leukocyte Esterase LARGE H Discharge - Discharge Clinical Impression: Omental mass Abdominal pain Qualifiers: Abdominal location: generalized Qualified Code(s): R10.84 - Generalized abdominal pain Ascites Qualifiers: Ascites type: malignant Qualified Code(s): R18.0 - Malignant ascites Condition: Stable Disposition: HOME, SELF-CARE Additional Instructions: Today your CAT scan showed findings that were suspicious for possible cancer in your abdomen that is causing fluid in your abdomen. I discussed your case with Dr. Cole who states she would like you to call her office first thing tomorrow morning to arrange a follow-up appointment in the near future. Dr. Gonzalez is a surgeon who specializes in only breast cancer. She would not be able to follow- up with you for the findings we found on your CAT scan today. Dr. Collins already has access to all of our laboratory studies and imaging so there was no need to print them for you today. I have prescribed a limited number of Clarion which is a narcotic pain medication to help control some of your pain over the next few days. Take it only as needed. Please make sure you are using a stool softener such as MiraLAX to pre vent constipation while using the narcotic pain medication. I have also prescribed you an antinausea medication called Reglan. Neither of these interact with sotalol. Prescriptions: Hydrocodone/Acetaminophen [Clarion 5-325 mg Tablet] 1 tab PO Q6HP PRN #10 tablet PRN Reason: Metoclopramide HCl [Reglan 10 mg Tablet] 10 mg PO Q6HP PRN #14 tablet PRN Reason: Referrals: MATTHEW GONZALEZ MD [NO LOCAL MD] - Follow up as needed DINO COLLINS MD [ACTIVE STAFF] - Follow up as needed
== END 2019-11-15 22:18 | disposition home or self-care (01) ==
LOC: ER 12:02
DX: R10.84 Generalized abdominal pain (principal); R10.817 Generalized abdominal tenderness; C80.1 Malignant (primary) neoplasm, unspecified; R18.0 Malignant ascites; K76.9 Liver disease, unspecified; R11.0 Nausea; R63.0 Anorexia; R68.81 Early satiety; D72.829 Elevated white blood cell count, unspecified; Z90.49 Acquired absence of other specified parts of digestive tract; Z90.710 Acquired absence of both cervix and uterus; Z88.2 Allergy status to sulfonamides; Z90.5 Acquired absence of kidney; Z85.3 Personal history of malignant neoplasm of breast
CPT/HCPCS: 99285; 96360; 96361; 36415; 87086; 83690; 85025; 80053; 81001; 74176; J7030

== ENCOUNTER 2019-11-18 10:04 | Day surgery (SDC) | payer MEDICARE, OTHER ==
[2019-11-18 10:58] LABS: HEMATOCRIT 40.6 % (36.0-47.0); MEAN CORPUSCULAR HEMOGLOBIN 30.5 pg (27.0-33.4); MEAN CORPUSCULAR HGB CONC 34.5 g/dL (32.0-36.0); MEAN CORPUSCULAR VOLUME 88 fl (80-97); PLATELET COUNT 518 10^3/uL (150-450); RED BLOOD COUNT 4.59 10^6/uL (3.72-5.28); RED CELL DISTRIBUTION WIDTH 12.4 % (11.5-14.0); WHITE BLOOD COUNT 10.4 10^3/uL (4.0-10.5)
[2019-11-18 11:05] LABS: INTERNATIONAL RATION (INR) 1.11; PROTHROMBIN TIME 14.5 SEC (11.4-15.4)
[2019-11-18 11:06] LABS: PARTIAL THROMBOPLASTIN TIME 35.5 SEC (23.5-35.8)
[2019-11-18 11:12] LABS: BLOOD UREA NITROGEN 13 mg/dL (7-20)
[2019-11-18 15:06] VITALS: BP 127/70
--- NOTE | 2019-11-18 15:27 | RADIOLOGY REPORT (SQ) ---
EXAM DESCRIPTION: U/S ABD PARACENTESIS IMAGES COMPLETED DATE/TIME: 11/18/2019 2:12 pm REASON FOR STUDY: ASCITES R18.8 OTHER ASCITES Z79.899 OTHER SNF (CURRENT) DRUG THERAPY Z79.0 1 SNF (CURRENT) USE OF ANTICOAGULANTS COMPARISON: None. LIMITATIONS: None. PROCEDURE: Procedure, risks, benefit, and alternative explained to patient who then gave written con sent. The right lower abdominal wall marked using ultrasound guidance. A time-out was called for co rrect marking verification. Abdomen prepped and draped using sterile technique. Local anesthesia ach ieved using 3.5 ml of 1% lidocaine injection. A 6fr Lzwz-P-Sjkuuvvz set was introduced into the david toneal cavity. Fluid was drained. The catheter was removed and entry site was covered with sterile bandage. No immediate complications noted. Images acquired during the procedure were stored on PACS. FINDINGS: ENTRY SITE: right lower quadrant. FLUID VOLUME: 2400 cc FLUID ANALYSIS: Serosanguineous. OTHER: Fluid sent to the lab for testing. IMPRESSION: SUCCESSFUL ULTRASOUND GUIDED PARACENTESIS. COMMENT: Patient medication list reviewed:Yes- Quality ID# [id number]:Eligible professional attests to docu menting in the medical record they obtained, updated, or reviewed the patient's current medications. TECHNICAL DOCUMENTATION: JOB ID: [id number] 2010 [employer]- All Rights Reserved Reading location - IP/workstation name: [email or web address]
== END 2019-11-18 14:45 | disposition home or self-care (01) ==
LOC: RAD 10:04
PROVIDERS: ATTEND Internal Medicine Hematology & Oncology
DX: R18.8 Other ascites (principal); I48.91 Unspecified atrial fibrillation; I10 Essential (primary) hypertension; Z85.3 Personal history of malignant neoplasm of breast; Z88.2 Allergy status to sulfonamides; Z79.899 Other long term (current) drug therapy; Z79.01 Long term (current) use of anticoagulants
CPT/HCPCS: 36415; 49083; 82565; 84520; 85027; 85610; 85730

== ENCOUNTER → 2019-11-24 | Outpatient (CLI) | payer MEDICARE, OTHER ==
--- NOTE | 2019-11-24 13:53 | RADIOLOGY REPORT (SQ) ---
EXAM DESCRIPTION: CT CHEST WITH IMAGES COMPLETED DATE/TIME: 11/24/2019 1:20 pm REASON FOR STUDY: C50.212 MALIG NEOPLASM OF UPPER-INNER QUADRANT OF LEFT FEMALE BREAST C50.212 JUAN JOSE G NEOPLASM OF UPPER-INNER QUADRANT OF LEFT FEMAL COMPARISON: 09/27/2017 TECHNIQUE: CT scan of the chest performed using helical scanning technique with dynamic intravenous contrast injection. Images reviewed with lung, soft tissue and bone windows. Reconstructed coronal and sagittal MPR and MIP images reviewed. All images stored on PACS. All CT scanners at this facility use dose modulation, iterative reconstruction, and/or weight based d osing when appropriate to reduce radiation dose to as low as reasonably achievable (ALARA). [facility]: Dose Right [facility]: CareDose [facility]: Dose Right [facility]: Teradose 4D [facility]: Ion [employer]rent CONTRAST TYPE AND DOSE: contrast/concentration: Isovue 350.00 mmol/ml; Total Contrast Delivered: 79. 1 ml; Total Saline Delivered: 39.0 ml RENAL FUNCTION: BUN 13 creatinine 0.56 RADIATION DOSE: . LIMITATIONS: None. FINDINGS: LUNGS AND PLEURA: No opacities, nodules, masses. No pneumothorax. No effusions. HILAR AND MEDIASTINAL STRUCTURES: No identified masses or abnormal nodes. HEART AND VASCULAR STRUCTURES: No aneurysm or dissection. No central pulmonary emboli. No pericardi al effusion. HARDWARE: None in the chest. UPPER ABDOMEN: See separate report of the CT of the abdomen. THYROID AND OTHER SOFT TISSUES: No masses. No adenopathy. BONES: No significant finding. OTHER: No other significant finding. IMPRESSION: There is no evidence of metastatic disease in the thorax. TECHNICAL DOCUMENTATION: JOB ID: [id number] Quality ID # [id number]: Final reports with documentation of one or more dose reduction techniques (e.g., Au tomated exposure control, adjustment of the mA and/or kV according to patient size, use of iterative reconstruction technique) 2010 [employer]- All Rights Reserved Reading location - IP/workstation name: [email or web address]
--- NOTE | 2019-11-24 14:03 | RADIOLOGY REPORT (SQ) ---
EXAM DESCRIPTION: CT ABD/PELVIS WITH IV ONLY IMAGES COMPLETED DATE/TIME: 11/24/2019 1:20 pm REASON FOR STUDY: C50.212 MALIG NEOPLASM OF UPPER-INNER QUADRANT OF LEFT FEMALE BREAST C50.212 JUAN JOSE G NEOPLASM OF UPPER-INNER QUADRANT OF LEFT FEMAL COMPARISON: 11/15/2019 TECHNIQUE: CT scan of the abdomen and pelvis performed using helical scanning technique with dynamic intravenous contrast injection. No oral contrast. Images reviewed with lung, soft tissue, and bone windows. Reconstructed coronal and sagittal MPR images reviewed. Delayed images for evaluation of the urinary system also acquired. All images stored on PACS. All CT scanners at this facility use dose modulation, iterative reconstruction, and/or weight based d osing when appropriate to reduce radiation dose to as low as reasonably achievable (ALARA). [facility]: Dose Right [facility]: CareDose [facility]: Dose Right [facility]: Teradose 4D [facility]: [employer] CONTRAST TYPE AND DOSE: 79 mL Omnipaque 350- low osmolar. RENAL FUNCTION: BUN 13 creatinine 0.56 RADIATION DOSE: CT Rad equipment meets quality standard of care and radiation dose reduction techniq ues were employed. CTDIvol: 5.2 - 7.6 mGy. DLP: 1062 mGy-cm.. LIMITATIONS: None. FINDINGS: LOWER CHEST: See separate report of the CT of the chest. LIVER: Normal size. No masses. No dilated ducts. SPLEEN: Normal size. No focal lesions. PANCREAS: No masses. No significant calcifications. No adjacent inflammation or peripancreatic fluid collections. Pancreatic duct not dilated. GALLBLADDER: Surgically absent. ADRENAL GLANDS: No significant masses or asymmetry. RIGHT KIDNEY AND URETER: Surgically absent. LEFT KIDNEY AND URETER: No solid masses. No significant calcifications. No hydronephrosis or hydr oureter. AORTA AND VESSELS: No aneurysm. No dissection. Renal arteries, SMA, celiac without stenosis. RETROPERITONEUM: No retroperitoneal adenopathy, hemorrhage or masses. BOWEL AND PERITONEAL CAVITY: Small hiatal hernia. Sigmoid diverticulosis with no acute inflammation. No obvious bowel mass. Moderate ascites has increased slightly. Mild omental opacification. APPENDIX: Not identified. PELVIS: Ascites. Urinary bladder is unremarkable. ABDOMINAL WALL: No masses. No hernias. BONES: No significant or acute findings. OTHER: No other significant finding. IMPRESSION: Slightly increased ascites with mild omental opacification raising the possibility of om ental metastatic disease. Diverticulosis coli with no acute inflammation. TECHNICAL DOCUMENTATION: JOB ID: [id number] Quality ID # [id number]: Final reports with documentation of one or more dose reduction techniques (e.g., Au tomated exposure control, adjustment of the mA and/or kV according to patient size, use of iterative reconstruction technique) 2010 [employer]- All Rights Reserved Reading location - IP/workstation name: [email or web address]
== END ==
LOC: RAD 12:33
PROVIDERS: ATTEND Internal Medicine Hematology & Oncology
DX: C50.212 Malignant neoplasm of upper-inner quadrant of left female breast (principal); R18.8 Other ascites; K57.30 Diverticulosis of large intestine without perforation or abscess without bleeding
CPT/HCPCS: 71260; 74177

== ENCOUNTER 2019-12-02 08:01 | Day surgery (SDC) | payer MEDICARE, OTHER ==
[2019-12-02 09:09] LABS: HEMATOCRIT 39.3 % (36.0-47.0); HEMOGLOBIN 13.5 g/dL (12.0-15.5); MEAN CORPUSCULAR HGB CONC 34.2 g/dL (32.0-36.0); MEAN CORPUSCULAR VOLUME 88 fl (80-97); PLATELET COUNT 501 10^3/uL (150-450); RED BLOOD COUNT 4.49 10^6/uL (3.72-5.28); RED CELL DISTRIBUTION WIDTH 12.8 % (11.5-14.0); WHITE BLOOD COUNT 10.2 10^3/uL (4.0-10.5)
[2019-12-02 09:12] LABS: INTERNATIONAL RATION (INR) 1.11; PROTHROMBIN TIME 14.5 SEC (11.4-15.4)
[2019-12-02 09:13] LABS: PARTIAL THROMBOPLASTIN TIME 35.8 SEC (23.5-35.8)
[2019-12-02 09:30] LABS: BLOOD UREA NITROGEN 14 mg/dL (7-20)
[2019-12-02] MEDS ORDERED: LIDOCAINE 1% INJ-PF (10 MG/ML) 30 ML SDV ONE (10:26)
[2019-12-02 11:22] VITALS: BP 143/75
--- NOTE | 2019-12-02 13:33 | RADIOLOGY REPORT (SQ) ---
EXAM DESCRIPTION: U/S ABD PARACENTESIS IMAGES COMPLETED DATE/TIME: 12/02/2019 10:48 am REASON FOR STUDY: ASCITES COMPARISON None. LIMITATIONS: None. PROCEDURE: After obtaining informed consent, the patient was brought to the ultrasound suite. The p rocedure was performed with the patient on a gurney. Ultrasound was used to identify a single small pocket of ascites in the right lower quadrant. An appropriate access site was selected. The patient was prepped and draped in usual sterile fashion. The access site was anesthetized with 10 mL 1% li docaine. Under ultrasound guidance, attempt to advance A Zeni-E-Wcowjsha needle into the fluid pock et was unsuccessful. A difference site in the right lower quadrant was then anesthetized. Again, un luis ultrasound guidance, attempt to advance needle into pocket was unsuccessful due to fluid shift. Procedure was ended at that time due to risks versus benefits, due to low volume of ascites seen. IMPRESSION: Unsuccessful ultrasound-guided paracentesis due to low volume of ascites. COMMENT: Patient medication list reviewed: Yes- Quality ID# [id number]:Eligible professional attests to doc umenting in the medical record they obtained, updated, or reviewed the patient's current medications. TECHNICAL DOCUMENTATION: JOB ID: [id number] 2010 [employer] All Rights Reserved Reading location - IP/workstation name: [email or web address]
== END 2019-12-02 11:20 | disposition home or self-care (01) ==
LOC: RAD 08:01
PROVIDERS: ATTEND Internal Medicine Hematology & Oncology
DX: R18.8 Other ascites (principal); Z79.01 Long term (current) use of anticoagulants; C50.212 Malignant neoplasm of upper-inner quadrant of left female breast; Z88.2 Allergy status to sulfonamides; Z79.899 Other long term (current) drug therapy
CPT/HCPCS: 36415; 84520; 82565; 85027; 85610; 85730; 49083; J3490

== ENCOUNTER 2019-12-09 11:37 | Day surgery (SDC) | payer MEDICARE, OTHER ==
[2019-12-09 12:12] LABS: HEMATOCRIT 38.4 % (36.0-47.0); HEMOGLOBIN 13.4 g/dL (12.0-15.5); MEAN CORPUSCULAR HEMOGLOBIN 30.3 pg (27.0-33.4); MEAN CORPUSCULAR HGB CONC 34.8 g/dL (32.0-36.0); MEAN CORPUSCULAR VOLUME 87 fl (80-97); PLATELET COUNT 441 10^3/uL (150-450); RED BLOOD COUNT 4.42 10^6/uL (3.72-5.28); WHITE BLOOD COUNT 8.7 10^3/uL (4.0-10.5)
[2019-12-09 12:20] LABS: INTERNATIONAL RATION (INR) 1.07; PROTHROMBIN TIME 14.1 SEC (11.4-15.4)
[2019-12-09 12:21] LABS: PARTIAL THROMBOPLASTIN TIME 33.7 SEC (23.5-35.8)
[2019-12-09 12:29] LABS: BLOOD UREA NITROGEN 16 mg/dL (7-20)
--- NOTE | 2019-12-09 15:46 | RADIOLOGY REPORT (SQ) ---
EXAM DESCRIPTION: U/S ABD PARACENTESIS IMAGES COMPLETED DATE/TIME: 12/09/2019 3:17 pm REASON FOR STUDY: ASCITES R18.8 OTHER ASCITES Z79.01 ALF (CURRENT) USE OF ANTICOAGULANTS COMPARISON: None. LIMITATIONS: None. PROCEDURE: Procedure, risks, benefit, and alternative explained to patient who then gave written con sent. The right lower abdominal wall marked using ultrasound guidance. A time-out was called for co rrect marking verification. Abdomen prepped and draped using sterile technique. Local anesthesia ach ieved using 2.5 ml of 1% lidocaine injection. A 6fr Jtzi-N-Exuphukj set was introduced into the david toneal cavity. Fluid was drained. The catheter was removed and entry site was covered with sterile bandage. No immediate complications noted. Images acquired during the procedure were stored on PACS. FINDINGS: ENTRY SITE: right lower quadrant. FLUID VOLUME: 4.5 L FLUID ANALYSIS: Nae. OTHER: Therapeutic only. IMPRESSION: SUCCESSFUL ULTRASOUND GUIDED PARACENTESIS. COMMENT: Patient medication list reviewed:Yes- Quality ID# [id number]:Eligible professional attests to docu menting in the medical record they obtained, updated, or reviewed the patient's current medications. TECHNICAL DOCUMENTATION: JOB ID: [id number] 2010 [employer]- All Rights Reserved Reading location - IP/workstation name: [email or web address]
[2019-12-09 17:14] VITALS: BP 133/72
== END 2019-12-09 15:45 | disposition home or self-care (01) ==
LOC: RAD 11:37
PROVIDERS: ATTEND Internal Medicine Hematology & Oncology
DX: R18.8 Other ascites (principal); Z79.01 Long term (current) use of anticoagulants; Z79.899 Other long term (current) drug therapy; R00.0 Tachycardia, unspecified
CPT/HCPCS: 36415; 49083; 82565; 84520; 85027; 85610; 85730

== ENCOUNTER 2019-12-16 10:00 | Day surgery (SDC) | payer MEDICARE, OTHER ==
--- NOTE | 2019-12-13 10:01 | EKG REPORT ---
SEVERITY:- NORMAL ECG - SINUS RHYTHM : Confirmed by: Leydi Blanco MD 13-Dec-2019 10:01:13
[~2019-12-16 10:00] MED LIST: CEFAZOLIN 2 GM/D5W RTU 2 GM/50 ML RTUPB IV ONE; CEFAZOLIN 2 GM/D5W RTU 2 GM/50 ML RTUPB IV PRN; GLYCOPYRROLATE 1 MG/5 ML VIAL ONE; LACTATED RINGERS 1000 ML IV PRN; LIDOCAINE 0.5% INJ-PF (5 MG/ML) 50 ML SDV SUBCUT PRN; LIDOCAINE 2% INJ-PF (20 MG/ML) 2 ML AMPUL ONE; NEOSTIGMINE METHYLSULFATE 10 MG/10 ML VIAL ONE; ONDANSETRON HCL INJ/PF 4 MG/2 ML SDV ONE; PHENYLEPHRINE HCL INJ/PF 10 MG/1 ML SDV ONE
[2019-12-16] MEDS ORDERED: BUPIVACAINE INJ/PF LIPOSOME/PF 266 MG/20 ML SDV ONE (10:57)
[2019-12-16] MEDS ORDERED: FENTANYL CITRATE INJ/PF 100 MCG/2 ML AMPUL ONE (12:04)
[2019-12-16] MEDS ORDERED: MIDAZOLAM 2 MG/2 ML INJ ONE (12:04)
[2019-12-16] MEDS ORDERED: HYDROMORPHONE HCL INJ/PF 2 MG/ML AMPULE ONE (12:04)
[2019-12-16] MEDS ORDERED: PROPOFOL INJ 200 MG/20 ML VIAL IV ONE (12:05)
[2019-12-16] MEDS ORDERED: MORPHINE SULFATE 10 MG/ML INJ IV PRN (12:59)
[2019-12-16] MEDS ORDERED: PROMETHAZINE HCL INJ 25 MG/1 ML VIAL IV PRN ×2 (12:59)
[2019-12-16] MEDS ORDERED: MEPERIDINE HCL/PF INJ 25 MG/1 ML DISP.SYRIN IV PRN (12:59)
[2019-12-16] MEDS ORDERED: FENTANYL CITRATE INJ/PF 100 MCG/2 ML AMPUL IV PRN ×3 (12:59)
[2019-12-16] MEDS ORDERED: DIPHENHYDRAMINE HCL 50 MG/ML VIAL IV PRN (12:59)
[2019-12-16] MEDS ORDERED: LABETALOL HCL INJ 20 MG/4 ML DISP.SYRIN IV ONE (13:12)
--- NOTE | 2019-12-16 14:16 | Operative Report ---
Nonrecallable Operative Report DATE OF SURGERY: 12/16/19 PREOPERATIVE DIAGNOSIS: ascites POSTOPERATIVE DIAGNOSIS: ascites OPERATION: diagnostic laparoscopy,omental biopsy. SURGEON: ANAMARIA PERALES ANESTHESIA: GA TISSUE REMOVED OR ALTERED: greater omentum COMPLICATIONS: none ESTIMATED BLOOD LOSS: 25 INTRAOPERATIVE FINDINGS: see note PROCEDURE: Patient was brought to the operating room awake alert stable condition placed in the upper table supine position induced under general esthesia intubated. After appropriate timeout site verification the procedure commenced. A varies needle was placed at Go's point in the left upper quadrant the abdomen was then insufflated with 6 L of CO2 gas. When we reached appropriate insufflation a epigastric 5 mm incision was made longitudinally and a 5 mm port placed in the abdominal cavity intra-abdominal visualization revealed no evidence of varies needle or trocar injury there were no loculated areas of ascites as previously reported by radiology however she did have a significant amount of ascites in her pelvis and her more since space. All this was suctioned dry. Approximately 4 L of ascites which appeared to be serous straw- colored fluid was removed. There was no fibrin or fibrinous exudate within it. We then began a search for the etiology of the ascites. 2 5 mm ports were placed in the left abdominal wall laterally. Using these to manipulate small bowel we we continued our exploration of the intraperitoneal organs. Liver appeared to be normal there was no evidence of any excrescences or metastatic deposits on the anterior and posterior surface of both lobes of the liver. There was no evidence of any peritoneal excrescences or metastatic deposits. The diaphragms were looked at and that appeared to be normal however examining the omentum it appeared to be cobblestone in appearance the greater omentum appeared to have some glistening capsules on it as well as cobblestoning. I therefore elected to remove the greater omentum along the entire length of the transverse colon with the LigaSure device beginning at the left upper quadrant continuous along the length of the transverse colon to the right colon where it was excised completely placed in an Endobag and removed through a 12 mm port site in the suprapubic position and have been placed under direct vision. Once this was completed we then placed the patient in Trendelenburg position examined the pelvis there was no evidence of any peritoneal metastasis in the pelvis however there was a an area of fibrinous exudate over the vaginal cuff that was about the size of a quarter as I picked it up it just dissolved and I was unable to really obtain a significant amount for biopsy.. As a old fibrinous residual from a old abscess. The cecum was fixed in the right lower quadrant and the appendix had a retroperitoneal location and therefore I was unable to identify the appendix completely I did run the small bowel from that point to the ligament of Treitz and about 10 cm distal to ligament of Treitz there was a small saad mucous appearing cystic structure on the antimesenteric border of the proximal jejunum is a lifted this up at biopsied with with a EndoShears removed and sent to the pathology. Is pending. The colon appeared to be relatively normal however the mesocolon of the sigmoid and descending colon appeared to be thickened again and had a cobblestone appearance like it was an infiltrative type process in the mesentery. Once this exploration was completed we irrigated the upper abdomen normal saline suctioned dry pathology revealed that the omentum to have a scirrhous appearance consistent with either a mesothelioma or mucosal based carcinoma however there was no obvious evidence of metastatic breast cancer. As the patient did have a history of breast cancer. This point with no further bleeding and hemostasis intact we reduce the pneumoperitoneum we closed the 11 mm fascial defect at the suprapubic position with 0 Vicryl and then closed all 3 skin incisions with intracuticular 4-0 Monocryl Steri-Strips completed the procedure. Estimated blood loss was about 25 cc sponge needle counts correct x2 There was approximately 4800 cc of ascitic fluid removed.
--- NOTE | 2019-12-16 14:27 | Discharge Summary ---
Discharge Summary (SDC) - Discharge Final Diagnosis: Ascites Date of Surgery: 12/16/19 Discharge Date: 12/16/19 Condition: Good Forms: ASU Anesthesia D/C Instruction, Discharge POC-Surgical Service Prescriptions: Oxycodone HCl/Acetaminophen [Percocet 5-325 mg Tablet] 1 tab PO Q6HP PRN #10 tab PRN Reason: Referrals: ANAMARIA PERALES MD [ACTIVE STAFF] - 12/16/19 10:45 am (PLEASE KEEP YOUR FOLLOW-UP APPOINTMENT.) Discharge Diet: As Tolerated Discharge Activity: Activity As Tolerated Report the Following to Your Physician Immediately: Vomiting, Increase in Pain, Fever over 101 Degrees - f/u with me 7-10dys
[2019-12-16] MEDS ORDERED: HYDROCODONE/ACETAMINOPHEN 7.5-325 MG TABLET PO ONE (16:15)
[2019-12-16 17:19] VITALS: BP 124/71
== END 2019-12-16 17:10 | disposition home or self-care (01) ==
LOC: OROUT 10:00
PROVIDERS: ATTEND Surgery
DX: C48.1 Malignant neoplasm of specified parts of peritoneum (principal); R18.8 Other ascites; Z85.3 Personal history of malignant neoplasm of breast; I48.91 Unspecified atrial fibrillation; Z03.818 Encounter for observation for suspected exposure to other biological agents ruled out; Z79.899 Other long term (current) drug therapy; Z90.5 Acquired absence of kidney; Z90.49 Acquired absence of other specified parts of digestive tract
CPT/HCPCS: 93005; 88342 ×2; 88341 ×2; 88305 ×2; 88331 ×2; 93010; 00790; 49321; C1758; U0003; J2250; J3010; J3490 ×3; J2710; J1170; J2370; J2405; J2704; J0690; C9290; C9803; 790; 87635

== ENCOUNTER 2020-01-04 08:03 | Day surgery (SDC) | payer MEDICARE, OTHER ==
[2020-01-04 09:29] LABS: HEMATOCRIT 36.3 % (36.0-47.0); HEMOGLOBIN 12.3 g/dL (12.0-15.5); MEAN CORPUSCULAR HEMOGLOBIN 28.9 pg (27.0-33.4); MEAN CORPUSCULAR HGB CONC 33.8 g/dL (32.0-36.0); MEAN CORPUSCULAR VOLUME 86 fl (80-97); PLATELET COUNT 453 10^3/uL (150-450); RED BLOOD COUNT 4.23 10^6/uL (3.72-5.28); RED CELL DISTRIBUTION WIDTH 14.2 % (11.5-14.0)
[2020-01-04 09:33] LABS: INTERNATIONAL RATION (INR) 1.02; PROTHROMBIN TIME 13.6 SEC (11.4-15.4)
[2020-01-04 09:34] LABS: PARTIAL THROMBOPLASTIN TIME 31.9 SEC (23.5-35.8)
[2020-01-04 09:50] LABS: BLOOD UREA NITROGEN 17 mg/dL (7-20)
[2020-01-04 11:10] VITALS: BP 111/58
--- NOTE | 2020-01-04 14:11 | RADIOLOGY REPORT (SQ) ---
EXAM DESCRIPTION: U/S ABD PARACENTESIS IMAGES COMPLETED DATE/TIME: 01/04/2020 11:40 am REASON FOR STUDY: ASCITES COMPARISON None. LIMITATIONS: None. PROCEDURE: After obtaining informed consent, the patient was brought to the ultrasound suite. The p rocedure was performed with the patient on a gurney. Ultrasound was used to identify a prominent poc ket of ascites in the right lower quadrant. An appropriate access site was selected. The patient wa s prepped and draped in usual sterile fashion. The access site was anesthetized with 6 mL 1% lidoca ine. A Tjsj-X-Chuyrsei needle was advanced into the fluid. After aspiration of fluid the needle, th e catheter was advanced off the needle into the fluid. A total of 3,758 mL of andry colored fluid wa s removed. The patient tolerated the procedure well left the department in satisfactory condition. IMPRESSION: Successful ultrasound-guided paracentesis COMMENT: Patient medication list reviewed: Yes- Quality ID# [id number]:Eligible professional attests to doc umenting in the medical record they obtained, updated, or reviewed the patient's current medications. TECHNICAL DOCUMENTATION: JOB ID: [id number] 2010 [employer]- All Rights Reserved Reading location - IP/workstation name: [email or web address]
== END 2020-01-04 11:11 | disposition home or self-care (01) ==
LOC: RAD 08:03
PROVIDERS: ATTEND Internal Medicine Hematology & Oncology
DX: R18.8 Other ascites (principal); I48.91 Unspecified atrial fibrillation; Z85.3 Personal history of malignant neoplasm of breast; R00.0 Tachycardia, unspecified; Z79.899 Other long term (current) drug therapy
CPT/HCPCS: 36415; 49083; 82565; 84520; 85027; 85610; 85730

== ENCOUNTER 2020-01-19 12:01 | Day surgery (SDC) | payer MEDICARE, OTHER ==
[2020-01-19 12:50] LABS: ABSOLUTE BASOPHILS # (AUTO) 0.1 10^3/uL (0.0-0.2); ABSOLUTE EOSINOPHILS # (AUTO) 0.1 10^3/uL (0.0-0.6); ABSOLUTE MONOCYTES (AUTO) 0.4 10^3/uL (0.1-1.4); ABSOLUTE NEUT (AUTO) 5.1 10^3/uL (1.7-8.2); EOSINOPHILS % (AUTO) 0.9 % (0-6); HEMATOCRIT 38.6 % (36.0-47.0); HEMOGLOBIN 13.2 g/dL (12.0-15.5); MEAN CORPUSCULAR HEMOGLOBIN 29.7 pg (27.0-33.4); MEAN CORPUSCULAR HGB CONC 34.2 g/dL (32.0-36.0); MEAN CORPUSCULAR VOLUME 87 fl (80-97); MONOCYTES % (AUTO) 6.3 % (3-13); PLATELET COUNT 318 10^3/uL (150-450); RED BLOOD COUNT 4.44 10^6/uL (3.72-5.28); RED CELL DISTRIBUTION WIDTH 16.4 % (11.5-14.0); SEGMENTED NEUTROPHILS % (AUTO) 76.8 % (42-78); TOTAL CELLS COUNTED % (AUTO) 100 %; WHITE BLOOD COUNT 6.7 10^3/uL (4.0-10.5)
[2020-01-19 12:57] LABS: INTERNATIONAL RATION (INR) 0.95; PROTHROMBIN TIME 12.9 SEC (11.4-15.4)
[2020-01-19 13:13] LABS: BLOOD UREA NITROGEN 13 mg/dL (7-20)
[2020-01-19 15:10] LABS: FLUID TYPE PERITONEAL
[2020-01-19 15:11] LABS: FLUID APPEARANCE CLOUDY; FLUID COLOR LIGHT YELLOW; FLUID SOURCE ASCITES; FLUID VISCOSITY LIQUID
--- NOTE | 2020-01-19 15:15 | RADIOLOGY REPORT (SQ) ---
EXAM DESCRIPTION: U/S ABD PARACENTESIS IMAGES COMPLETED DATE/TIME: 01/19/2020 3:04 pm REASON FOR STUDY: OTHER ASCITES COMPARISON 01/04/2020 LIMITATIONS: None. PROCEDURE: After obtaining informed consent, the patient was brought to the ultrasound suite. The p rocedure was performed with the patient on a gurney. Ultrasound was used to identify a prominent poc ket of ascites in the right upper quadrant. An appropriate access site was selected. The patient wa s prepped and draped in usual sterile fashion. The access site was anesthetized with 6 mL 1% lidoca ine. A Qbpp-G-Kmfqwhab needle was advanced into the fluid. After aspiration of fluid the needle, th e catheter was advanced off the needle into the fluid. A total of 4,500 mL of cloudy, andry fluid wa s removed. The patient tolerated the procedure well left the department in satisfactory condition. IMPRESSION: Successful ultrasound-guided paracentesis COMMENT: Patient medication list reviewed: Yes- Quality ID# [id number]:Eligible professional attests to doc umenting in the medical record they obtained, updated, or reviewed the patient's current medications. TECHNICAL DOCUMENTATION: JOB ID: [id number] 2010 [email or web address]- All Rights Reserved Reading location - IP/workstation name: [email or web address]
[2020-01-19 15:42] VITALS: BP 136/70
== END 2020-01-19 15:36 | disposition home or self-care (01) ==
LOC: RAD 12:01
PROVIDERS: ATTEND Internal Medicine Hematology & Oncology
DX: R18.8 Other ascites (principal); Z79.899 Other long term (current) drug therapy; Z79.01 Long term (current) use of anticoagulants
CPT/HCPCS: 36415; 49083; 82042; 82565; 83615; 84520; 85025; 85610; 85730; 88305; 88341; 88342; 89050

== ENCOUNTER 2020-02-01 07:51 | Day surgery (SDC) | payer MEDICARE, OTHER ==
[2020-02-01 08:39] LABS: MEAN CORPUSCULAR HGB CONC 34.3 g/dL (32.0-36.0); MEAN CORPUSCULAR VOLUME 87 fl (80-97); PLATELET COUNT 275 10^3/uL (150-450); RED CELL DISTRIBUTION WIDTH 17.5 % (11.5-14.0)
[2020-02-01 08:46] LABS: INTERNATIONAL RATION (INR) 1.01; PROTHROMBIN TIME 13.5 SEC (11.4-15.4)
[2020-02-01 09:01] LABS: BLOOD UREA NITROGEN 13 mg/dL (7-20)
--- NOTE | 2020-02-01 10:52 | RADIOLOGY REPORT (SQ) ---
EXAM DESCRIPTION: U/S ABD PARACENTESIS IMAGES COMPLETED DATE/TIME: 02/01/2020 10:06 am REASON FOR STUDY: OTHER ASCITES R18.8 OTHER ASCITES Z79.01 SHELTER (CURRENT) USE OF ANTICOAGULAN TS COMPARISON: Paracentesis 01/19/2020 RADIATION DOSE: None LIMITATIONS: None. PROCEDURE: Procedure, risks, benefit, and alternative explained to patient who then gave written con sent. The right upper abdominal wall marked using ultrasound guidance. A time-out was called for co rrect marking verification. Abdomen prepped and draped using sterile technique. Local anesthesia ach ieved using 10 ml of 1% lidocaine injection. A 6fr Zjqw-G-Afopflwa set was introduced into the perit sultana cavity. Fluid was drained. The catheter was removed and entry site was covered with sterile b andage. No immediate complications noted. Images acquired during the procedure were stored on PACS. FINDINGS: ENTRY SITE: right upper quadrant. FLUID VOLUME: 4500 mL FLUID ANALYSIS: Nae colored fluid OTHER: Therapeutic only. IMPRESSION: SUCCESSFUL ULTRASOUND GUIDED PARACENTESIS. COMMENT: Patient medication list reviewed: Yes- Quality ID# [id number]:Eligible professional attests to doc umenting in the medical record they obtained, updated, or reviewed the patient's current medications. TECHNICAL DOCUMENTATION: JOB ID: [id number] 2010 [email or web address]- All Rights Reserved Reading location - IP/workstation name: [email or web address]
[2020-02-01 11:54] VITALS: BP 114/66
== END 2020-02-01 11:10 | disposition home or self-care (01) ==
LOC: RAD 07:51
PROVIDERS: ATTEND Internal Medicine Hematology & Oncology
DX: C50.212 Malignant neoplasm of upper-inner quadrant of left female breast (principal); R18.8 Other ascites; Z79.01 Long term (current) use of anticoagulants
CPT/HCPCS: 36415; 49083; 82565; 84520; 85027; 85610; 85730

== ENCOUNTER 2020-02-14 10:53 | Day surgery (SDC) | payer MEDICARE, OTHER ==
[2020-02-14 11:48] LABS: ABSOLUTE EOSINOPHILS # (AUTO) 0.1 10^3/uL (0.0-0.6); ABSOLUTE LYMPHOCYTES (AUTO) 0.7 10^3/uL (0.5-4.7); ABSOLUTE MONOCYTES (AUTO) 0.4 10^3/uL (0.1-1.4); ABSOLUTE NEUT (AUTO) 4.1 10^3/uL (1.7-8.2); BASOPHILS % (AUTO) 0.8 % (0-2); EOSINOPHILS % (AUTO) 1.2 % (0-6); HEMATOCRIT 40.6 % (36.0-47.0); HEMOGLOBIN 13.6 g/dL (12.0-15.5); LYMPHOCYTES % (AUTO) 13.1 % (13-45); MEAN CORPUSCULAR HEMOGLOBIN 29.4 pg (27.0-33.4); MEAN CORPUSCULAR HGB CONC 33.4 g/dL (32.0-36.0); MEAN CORPUSCULAR VOLUME 88 fl (80-97); MONOCYTES % (AUTO) 6.6 % (3-13); PLATELET COUNT 279 10^3/uL (150-450); RED BLOOD COUNT 4.62 10^6/uL (3.72-5.28); RED CELL DISTRIBUTION WIDTH 16.9 % (11.5-14.0); SEGMENTED NEUTROPHILS % (AUTO) 78.3 % (42-78); TOTAL CELLS COUNTED % (AUTO) 100 %; WHITE BLOOD COUNT 5.3 10^3/uL (4.0-10.5)
[2020-02-14 11:58] LABS: INTERNATIONAL RATION (INR) 0.99; PROTHROMBIN TIME 13.3 SEC (11.4-15.4)
[2020-02-14 11:59] LABS: PARTIAL THROMBOPLASTIN TIME 31.9 SEC (23.5-35.8)
[2020-02-14 12:13] LABS: ALBUMIN 3.2 g/dL (3.5-5.0); ALKALINE PHOSPHATASE 57 U/L (38-126); ASPARTATE AMINO TRANSFERASE 20 U/L (14-36); BILIRUBIN,DIRECT 0.1 mg/dL (0.0-0.4); BILIRUBIN,TOTAL 0.4 mg/dL (0.2-1.3); BLOOD UREA NITROGEN 15 mg/dL (7-20); TOTAL PROTEIN 5.6 g/dL (6.3-8.2)
[2020-02-14 14:16] VITALS: BP 130/68
--- NOTE | 2020-02-14 14:17 | RADIOLOGY REPORT (SQ) ---
EXAM DESCRIPTION: U/S ABD PARACENTESIS IMAGES COMPLETED DATE/TIME: 02/14/2020 1:50 pm REASON FOR STUDY: ASCITES COMPARISON 02/01/2020 LIMITATIONS: None. PROCEDURE: After obtaining informed consent, the patient was brought to the ultrasound suite. The p rocedure was performed with the patient on a gurney. Ultrasound was used to identify a prominent poc ket of ascites in the left lower quadrant. An appropriate access site was selected. The patient was prepped and draped in usual sterile fashion. The access site was anesthetized with 8 mL 1% lidocai ne. A Xjoa-M-Ousmhyfl needle was advanced into the fluid. After aspiration of fluid the needle, the catheter was advanced off the needle into the fluid. A total of 4,000 mL of cloudy, andry colored f luid was removed. The patient tolerated the procedure well left the department in satisfactory condit ion. IMPRESSION: Successful ultrasound-guided paracentesis COMMENT: Patient medication list reviewed: Yes- Quality ID# [id number]:Eligible professional attests to doc umenting in the medical record they obtained, updated, or reviewed the patient's current medications. TECHNICAL DOCUMENTATION: JOB ID: [id number] 2010 [email or web address]- All Rights Reserved Reading location - IP/workstation name: [email or web address]
== END 2020-02-14 14:22 | disposition home or self-care (01) ==
LOC: RAD 10:53
PROVIDERS: ATTEND Internal Medicine Hematology & Oncology
DX: C50.911 Malignant neoplasm of unspecified site of right female breast (principal); C79.9 Secondary malignant neoplasm of unspecified site; R18.0 Malignant ascites
CPT/HCPCS: 36415; 49083; 80076; 82042; 82565; 84520; 85025; 85610; 85730

== ENCOUNTER 2020-02-24 08:58 | Day surgery (SDC) | payer MEDICARE, OTHER ==
[2020-02-24] MEDS ORDERED: MIDAZOLAM 2 MG/2 ML INJ ONE (11:39)
[2020-02-24] MEDS ORDERED: DEXAMETHASONE SOD PHOSPHATE INJ 4 MG/1 ML VIAL ONE (11:39)
[2020-02-24] MEDS ORDERED: ONDANSETRON HCL INJ/PF 4 MG/2 ML SDV ONE (11:39)
[2020-02-24] MEDS ORDERED: SUGAMMADEX SODIUM 200 MG/2 ML SDV IV ONE (11:39)
[2020-02-24] MEDS ORDERED: PROPOFOL INJ 200 MG/20 ML VIAL IV ONE (11:39)
[2020-02-24] MEDS ORDERED: FENTANYL CITRATE INJ/PF 100 MCG/2 ML AMPUL ONE (11:39)
[2020-02-24] MEDS ORDERED: EPHEDRINE SULFATE INJ 50 MG/1 ML AMPULE ONE (11:39)
[2020-02-24] MEDS ORDERED: CEFAZOLIN 2 GM/D5W RTU 2 GM/50 ML RTUPB IV ONE (11:52)
[2020-02-24] MEDS ORDERED: DIPHENHYDRAMINE HCL 50 MG/ML VIAL IV PRN (12:22)
[2020-02-24] MEDS ORDERED: OXYCODONE-ACETAMINOPHEN 5-325 MG TABLET PO PRN ×2 (12:22)
[2020-02-24] MEDS ORDERED: FENTANYL CITRATE INJ/PF 100 MCG/2 ML AMPUL IV PRN ×3 (12:22)
[2020-02-24] MEDS ORDERED: MEPERIDINE HCL/PF INJ 25 MG/1 ML DISP.SYRIN IV PRN (12:22)
[2020-02-24] MEDS ORDERED: PROMETHAZINE HCL INJ 25 MG/1 ML VIAL IV PRN (12:22)
[2020-02-24] MEDS: FENTANYL CITRATE INJ/PF 100 MCG/2 ML AMPUL ONE ×2 (12:50→12:55)
--- NOTE | 2020-02-24 12:57 | Operative Report ---
Nonrecallable Operative Report DATE OF SURGERY: 02/24/20 PREOPERATIVE DIAGNOSIS: metastatic cancer POSTOPERATIVE DIAGNOSIS: same OPERATION: pleurx catheter abdominal drain place,ment SURGEON: ANAMARIA PERALES 1ST POCKETED SPRING MACHINE OPERATOR: TARAH RAZO ANESTHESIA: GA TISSUE REMOVED OR ALTERED: 2.5 liters ascites COMPLICATIONS: none ESTIMATED BLOOD LOSS: 0 INTRAOPERATIVE FINDINGS: see note PROCEDURE: Patient was brought to the operating room awake alert stable condition placed on the operative table supine position induced under general anesthesia intubated. The abdomen was prepped draped in usual sterile fashion for the procedure. Using ultrasound we identified a pocket of fluid just below the right costal margin and that was aspirated with a 16-gauge needle. Through the needle a J- wire was placed into the abdominal cavity. Then serial dilators were placed over the wire in the right upper quadrant into the abdominal cavity. See an incision was then made in the right lower quadrant of the abdominal wall with a 15 blade and the Pleurx catheter was tunneled from that incision to the dilator insertion site approximately 3 cm away. This allowed the cuff to be underneath the skin. Once the catheter was pulled through the skin to the insertion site the tear-away introducer dilator was placed over the wire dilator removed and the catheter placed through the tear-away introducer which was torn away leaving the catheter to be into the abdominal cavity. We then closed the insertion site with 2-0 nylon as well as tacked the catheter to the skin edge at the exit site with 2-0 nylon suture. The catheter was then attached to a vacuum bottle and approximately 2 and half liters of ascitic fluid were removed. After this the catheter was capped off sterile dressing was applied and the patient was awakened in the operating room transferred recovery in stable condition no complications. MÓNICA Zelaya was present for the entire procedure for help with wound retraction wound closure.
--- NOTE | 2020-02-24 13:05 | Discharge Summary ---
Discharge Summary (SDC) - Discharge Final Diagnosis: Metastatic carcinoma abdominal ascites Date of Surgery: 02/24/20 Discharge Date: 02/24/20 Condition: Good Prescriptions: Oxycodone HCl/Acetaminophen [Percocet 5-325 mg Tablet] 1 tab PO Q6HP PRN #15 tab PRN Reason: Referrals: ASHANTI MONROY NP [Primary Care Provider] - Discharge Diet: As Tolerated Report the Following to Your Physician Immediately: Shortness of Breath, Yellow Skin, Fever over 101 Degrees, Unusual Bleeding
[2020-02-24] MEDS ORDERED: OXYCODONE-ACETAMINOPHEN 5-325 MG TABLET ONE ×2 (13:11→13:27)
[2020-02-24 15:29] VITALS: BP 130/68
[2020-02-24] MEDS ORDERED: ROCURONIUM BROMIDE INJ 50 MG/5 ML VIAL IV ONE (15:58)
[2020-02-24] MEDS ORDERED: SUCCINYLCHOLINE CHLORIDE INJ 200 MG/10 ML VIAL ONE (15:58)
== END 2020-02-24 14:45 | disposition home or self-care (01) ==
LOC: OROUT 08:58
PROVIDERS: ATTEND Surgery
DX: C79.9 Secondary malignant neoplasm of unspecified site (principal); R18.0 Malignant ascites; Z85.3 Personal history of malignant neoplasm of breast; Z85.89 Personal history of malignant neoplasm of other organs and systems; Z20.828 Contact with and (suspected) exposure to other viral communicable diseases; I48.0 Paroxysmal atrial fibrillation; I10 Essential (primary) hypertension; Z79.899 Other long term (current) drug therapy; Z90.12 Acquired absence of left breast and nipple; Z90.5 Acquired absence of kidney
CPT/HCPCS: 0241U ×4; 49418; J2250; J3490; J1100; J3010; A9270; J0330; J2405; J2704; J0690; C9803